=== PATIENT | female | born 1960 | race Caucasian/White ===

== ENCOUNTER 2021-03-05 20:11 | Emergency (ER) | payer MEDICARE ==
--- NOTE | 2021-03-05 20:39 | ERPHSYRPT ---
- History of Present Illness Time Seen by Provider: 03/05/21 20:39 Source: patient Exam Limitations: no limitations Physician History: This is a 60-year-old white female who has had shortness of breath all day today and had a episode of severe shortness of breath prior to arrival with associated chest pain. Chest pain came on when she was talking to a log haul operator about a home issue. Patient has a field spec, Dr. Orozco, that she has been seen recently because of the chronic, sharp left anterior chest pain she is experiencing over the last 4 weeks. Patient has not had any fever. She has not occasional mild cough. She has no abdominal pain. She has no nausea vomiting or diarrhea. Timing/Duration: today Activities at Onset: none Severity of Dyspnea-Max: mild (To moderate) Severity of Dyspnea-Current: mild Possible Cause: frequent episodes Modifying Factors: Improves With: activity Associated Symptoms: intermittent, cough, chest pain/discomfort Allergies/Adverse Reactions: donepezil Allergy (Unknown, Verified 03/05/21 21:17) latex Allergy (Unknown, Verified 03/05/21 21:17) Penicillins Allergy (Unknown, Verified 03/05/21 21:17) Travel Risk - International Travel Have you traveled outside of the country in past 3 weeks: No - Coronavirus Screening Are you exhibiting any of the following symptoms?: No Close contact with a COVID-19 positive Pt in past 14-21 Days: No - Review of Systems Constitutional: No Symptoms Eyes: No Symptoms Ears, Nose, & Throat: No Symptoms Respiratory: Cough, Dyspnea Cardiac: Chest Pain Abdominal/Gastrointestinal: No Symptoms Genitourinary Symptoms: No Symptoms Musculoskeletal: No Symptoms Skin: No Symptoms Neurological: No Symptoms Psychological: No Symptoms Endocrine: No Symptoms Hematologic/Lymphatic: No Symptoms Immunological/Allergic: No Symptoms All Other Systems: Reviewed and Negative - Past Medical History Pertinent Past Medical History: Yes - Past Surgical History Past Surgical History: Yes - Nursing Vital Signs Nursing Vital Signs: Initial Vital Signs Temperature 99.0 F 03/05/21 20:38 Pulse Rate 76 03/05/21 20:38 Respiratory Rate 18 03/05/21 20:38 Blood Pressure 146/61 03/05/21 20:38 O2 Sat by Pulse Oximetry 97 03/05/21 20:38 Pain Scale Pain Intensity 9 - Physical Exam General Appearance: no apparent distress, alert, anxiety Eye Exam: PERRL/EOMI, eyes nml inspection Ears, Nose, Throat Exam: hearing grossly normal, normal ENT inspection, normal pharynx Neck Exam: normal inspection, non-tender, supple, full range of motion Respiratory Exam: normal breath sounds, chest tenderness, lungs clear, airway intact, No respiratory distress Cardiovascular/Chest Exam: normal heart sounds, regular rate/rhythm, normal peripheral pulses Abdominal/Gastrointestinal Exam: soft, normal bowel sounds, No tenderness Rectal Exam: not done Extremity Exam: non-tender, normal range of motion, normal inspection Neurologic Exam: alert, oriented x 3, cooperative, student education specialist II-XII nml as tested, normal mood/affect, nml cerebellar function, nml station & gait, sensation nml Skin Exam: normal color, warm, dry Lymphatic Exam: No adenopathy SpO2 Interpretation: normal O2 Delivery: Room Air - Course Nursing assessment & vital signs reviewed: Yes EKG Interpreted by Me: RATE (61), Sinus Rhythm, NORMAL AXIS, NORMAL INTERVALS, NORMAL QRS, NORMAL ST-T, Other (No acute ischemic changes on today's EKG. There is no change when compared to EKG dated 12/29/2020) Ordered Tests: Active Orders 24 hr Category Date Time Status Director Sales STAT Care 03/05/21 20:40 Active EKG-ER Only STAT Care 03/05/21 20:39 Active IV Insertion STAT Care 03/05/21 20:39 Active Pulse Oximetry (ED) STAT Care 03/05/21 20:39 Active CHEST 1 VIEW (PORTABLE) Stat Exams 03/05/21 20:40 Ordered BLOOD CULTURE Stat Lab 03/05/21 21:10 Received CBC W DIFF Stat Lab 03/05/21 20:40 Completed CMP Stat Lab 03/05/21 20:40 Completed D-DIMER QUANTITATIVE Stat Lab 03/05/21 20:40 Completed INFLUENZA A+B HALEY Stat Lab 03/05/21 21:10 Completed Lactic Acid Stat Lab 03/05/21 20:39 Completed MAGNESIUM Stat Lab 03/05/21 20:40 Completed NT PRO BNP Stat Lab 03/05/21 20:40 Completed PROTIME WITH INR Stat Lab 03/05/21 20:40 Completed TROPONIN Q3H Lab 03/05/21 20:40 Completed TROPONIN Q3H Lab 03/05/21 23:45 Ordered TROPONIN Q3H Lab 03/06/21 02:45 Ordered TROPONIN Q3H Lab 03/06/21 05:45 Ordered TROPONIN Q3H Lab 03/06/21 08:45 Ordered Lab/Rad Data: Laboratory Result Diagrams 03/05/21 20:40 03/05/21 20:40 Laboratory Results 03/05/21 03/05/21 03/05/21 Range/Units 21:10 20:40 20:40 WBC (4.0-10.5) K/mm3 RBC (4.1-5.4) M/mm3 Hgb (12.0-16.0) gm/dl Hct (35-47) % MCV (78-100) fl MCH (26-32) pg MCHC (32-36) g/dl RDW (11.5-14.0) % Plt Count (150-450) K/mm3 MPV (7.5-11.0) fl Gran % (36.0-66.0) % Eos # (Auto) (0-0.5) Absolute Lymphs (auto) (1.0-4.6) Absolute Monos (auto) (0.0-1.3) Lymphocytes % (24.0-44.0) % Monocytes % (0.0-12.0) % Eosinophils % (0.00-5.0) % Basophils % (0.0-0.4) % Absolute Granulocytes (1.4-6.9) Basophils # (0-0.4) PT 12.8 H (9.4-12.5) SECONDS INR 1.08 (0.8-3.0) D-Dimer 393 (215-500) ng/mL Sodium (137-145) mmol/L Potassium (3.5-5.1) mmol/L Chloride (98-107) mmol/L Carbon Dioxide (22-30) mmol/L Anion Gap (5-15) MEQ/L BUN (7-17) mg/dL Creatinine (0.52-1.04) mg/dL Estimated GFR ML/MIN Glucose (74-106) mg/dL Lactic Acid (0.4-2.0) Calcium (8.4-10.2) mg/dL Magnesium (1.6-2.3) mg/dL Total Bilirubin (0.2-1.3) mg/dL AST (14-36) U/L ALT (0-35) U/L Alkaline Phosphatase (38-126) U/L Troponin I < 0.012 (0.000-0.034) ng/mL NT-Pro-B Natriuret Pep (0-900) pg/mL Serum Total Protein (6.3-8.2) g/dL Albumin (3.5-5.0) g/dL Influenza Type A Ag NEGATIVE (NEGATIVE) Influenza Type B Ag NEGATIVE (NEGATIVE) 03/05/21 03/05/21 03/05/21 Range/Units 20:40 20:40 20:39 WBC 9.4 (4.0-10.5) K/mm3 RBC 3.86 L (4.1-5.4) M/mm3 Hgb 11.9 L (12.0-16.0) gm/dl Hct 37.3 (35-47) % MCV 96.6 (78-100) fl MCH 30.8 (26-32) pg MCHC 31.9 L (32-36) g/dl RDW 12.7 (11.5-14.0) % Plt Count 185 (150-450) K/mm3 MPV 10.3 (7.5-11.0) fl Gran % 65.0 (36.0-66.0) % Eos # (Auto) 0.30 (0-0.5) Absolute Lymphs (auto) 1.98 (1.0-4.6) Absolute Monos (auto) 0.95 (0.0-1.3) Lymphocytes % 21.1 L (24.0-44.0) % Monocytes % 10.1 (0.0-12.0) % Eosinophils % 3.2 (0.00-5.0) % Basophils % 0.6 (0.0-0.4) % Absolute Granulocytes 6.09 (1.4-6.9) Basophils # 0.06 (0-0.4) PT (9.4-12.5) SECONDS INR (0.8-3.0) D-Dimer (215-500) ng/mL Sodium 138 (137-145) mmol/L Potassium 3.9 (3.5-5.1) mmol/L Chloride 105 (98-107) mmol/L Carbon Dioxide 27 (22-30) mmol/L Anion Gap 9.3 (5-15) MEQ/L BUN 19 H (7-17) mg/dL Creatinine 0.69 (0.52-1.04) mg/dL Estimated GFR > 60.0 ML/MIN Glucose 99 (74-106) mg/dL Lactic Acid 0.6 (0.4-2.0) Calcium 9.3 (8.4-10.2) mg/dL Magnesium 1.8 (1.6-2.3) mg/dL Total Bilirubin 0.40 (0.2-1.3) mg/dL AST 34 (14-36) U/L ALT 33 (0-35) U/L Alkaline Phosphatase 101 (38-126) U/L Troponin I (0.000-0.034) ng/mL NT-Pro-B Natriuret Pep 225 (0-900) pg/mL Serum Total Protein 6.2 L (6.3-8.2) g/dL Albumin 3.9 (3.5-5.0) g/dL Influenza Type A Ag (NEGATIVE) Influenza Type B Ag (NEGATIVE) - Progress Progress: improved Air Movement: good Progress Note: 03/05/21 22:18 Chest x-ray shows no acute cardiopulmonary process. Blood Culture(s) Obtained: No Antibiotics given: No Counseled pt/family regarding: lab results, diagnosis, need for follow-up, rad results - Departure Departure Disposition: Home Clinical Impression: SOB (shortness of breath), Chest pain Condition: Stable Critical Care Time: No Referrals: MEL TOLLIVER [Primary Care Provider] - Follow up/PCP as directed Additional Instructions: Follow-up with your field spec by phone tomorrow to obtain further management and recommendations. Continue medication as prescribed
[2021-03-05 20:51] LABS: Absolute Neutrophil Ct (ANC) 6.09 (1.4-6.9); Basophil (Absolute #) 0.06 (0-0.4); Eosinophil % 3.2 % (0.00-5.0); Hematocrit 37.3 % (35-47); Hemoglobin 11.9 gm/dl (12.0-16.0); Lymphocyte (Absolute #) 1.98 (1.0-4.6); Lymphocytes % 21.1 % (24.0-44.0); Mean Cell Volume 96.6 fl (78-100); Mean Corpuscular Hemoglobin 30.8 pg (26-32); Mean Corpuscular Hgb Concent. 31.9 g/dl (32-36); Mean Platelet Volume 10.3 fl (7.5-11.0); Monocyte (Absolute #) 0.95 (0.0-1.3); Monocytes % 10.1 % (0.0-12.0); Platelet Count 185 K/mm3 (150-450); Red Blood Count 3.86 M/mm3 (4.1-5.4); Red Cell Distribution Width 12.7 % (11.5-14.0); White Blood Count 9.4 K/mm3 (4.0-10.5)
[2021-03-05 20:59] LABS: INR 1.08 (0.8-3.0); PROTIME 12.8 SECONDS (9.4-12.5)
[2021-03-05 21:12] LABS: ALBUMIN 3.9 g/dL (3.5-5.0); ALKALINE PHOSPHATASE 101 U/L (38-126); ANION GAP 9.3 MEQ/L (5-15); BLOOD UREA NITROGEN 19 mg/dL (7-17); CHLORIDE 105 mmol/L (98-107); Calcium 9.3 mg/dL (8.4-10.2); Carbon Dioxide 27 mmol/L (22-30); Creatinine 1 0.69 mg/dL (0.52-1.04); EST GLOMERULAR FILTRATION RATE > 60.0 ML/MIN; Glucose 99 mg/dL (74-106); MAGNESIUM 1.8 mg/dL (1.6-2.3); NT PRO BNP 225 pg/mL (0-900); Potassium 3.9 mmol/L (3.5-5.1); SGOT/AST 34 U/L (14-36); SGPT/ALT 33 U/L (0-35); SODIUM 138 mmol/L (137-145); Total Protein 6.2 g/dL (6.3-8.2)
[2021-03-05 21:51] LABS: INFLUENZA A NEGATIVE (NEGATIVE); INFLUENZA B NEGATIVE (NEGATIVE)
[2021-03-05 22:25] VITALS: BP 163/86; PULSE 72; O2SAT 97
--- NOTE | 2021-03-06 09:01 | XRAY ---
Indication: Short of breath and chest pain. Comparison: None Portable chest hyperinflated and clear. Heart and mediastinal structures within normal limits. Bony thorax intact with mild osteopenia, degenerative changes, and mild levoscoliosis. Impression: Nonacute hyperinflated chest with chronic bony findings.
== END 2021-03-05 22:45 | disposition home or self-care (01) ==
LOC: ED 20:11
DX: R06.02 Shortness of breath (principal); R07.9 Chest pain, unspecified; R05.9 Cough, unspecified
CPT/HCPCS: 36000; 36415; 71045; 80053; 83605; 83735; 83880; 84484; 85025; 85379; 85610; 87040; 87400; 93005; 93041; 94760; 99284

== ENCOUNTER 2023-03-09 09:15 | Observation (INO) | payer MEDICARE ==
[2023-03-09] MEDS ORDERED: Sodium Chloride 0.9% 1000 ML 1,000 ML IV STA (09:29)
[2023-03-09] MEDS ORDERED: solu-MEDROL 125 MG, Sterile H2O 10 ml 2 ML IV ONE ×2 (09:38)
--- NOTE | 2023-03-09 09:40 | ERPHSYRPT ---
- History of Present Illness Time Seen by Provider: 03/09/23 09:34 Physician History: Patient 62-year-old female presents to our ED as a referral from her nurse practitioner and in [facility] for IV fluids to treat chronic diarrhea. Patient voices she has a history of COPD. Patient has had an ongoing cough and shortness of breath that has been progressive. Patient states that she was diagnosed with bronchitis but her symptoms are worsening. No associated chest pain. No nausea vomiting or diaphoresis. No fever. Symptoms are moderate in intensity. No specific worsening or improving factors. Patient voices no other complaints or concerns at this time. Portions of this note were created with voice recognition technology. There may be grammatical, spelling, punctuation or sound alike errors Timing/Duration: today Severity: moderate Modifying Factors: Improves With: nothing Associated Symptoms: denies symptoms Allergies/Adverse Reactions: diazepam Allergy (Severe, Verified 03/09/23 09:57) Difficulty Breathing total body hives donepezil Allergy (Unknown, Verified 03/09/23 09:57) latex Allergy (Unknown, Verified 03/09/23 09:57) Penicillins Allergy (Unknown, Verified 03/09/23 09:57) Latex, Natural Rubber Allergy (Verified 03/09/23 09:57) Difficulty Breathing total body hives valbenazine [From Ingrezza] Allergy (Verified 03/09/23 09:57) Difficulty Breathing total body hives Home Medications: Amlodipine Besylate 5 mg [Norvasc 5 mg] 5 mg PO DAILY 12/15/21 [History] Ipratropium Trent 0.5 mg [Atrovent 0.5MG NEBULE] 1 neb PO QID 12/15/21 [History] Nitroglycerin 0.4 mg Tablet [Nitrostat 0.4 MG Tablet] 0.4 mg SL UD 12/15/21 [History] Omeprazole 20 mg PO DAILY 12/15/21 [History] Albuterol 8 gm Mdi Hfa [Ventolin Hfa MDI] 2 puff PO Q4H PRN PRN 03/09/23 [History] Cetirizine HCl 1 tab PO DAILY 03/09/23 [History] Levothyroxine Sodium 25 Mcg [Synthroid 25 Mcg] 1 tab PO DAILY 03/09/23 [History] Mirtazapine 30 mg [Remeron 30 mg] 1 tab PO HS 03/09/23 [History] Mometasone Furoate [Nasonex 24Hr Allergy] 1 spray INTRANASAL DAILY 03/09/23 [History] OXcarbazepine [Trileptal] 1 tab PO BID 03/09/23 [History] Pravastatin Sodium 1 tab PO HS 03/09/23 [History] Vortioxetine Hydrobromide [Trintellix] 1 tab PO DAILY 03/09/23 [History] Ziprasidone 20 mg [Geodon 20 MG Capsule] 1 cap PO DAILY 03/09/23 [History] ziprasidone HCL [Ziprasidone HCl] 1 cap PO HS 03/09/23 [History] Hx Tetanus, Diphtheria Vaccination/Date Given: (unsure) Hx Influenza Vaccination/Date Given: No Hx Pneumococcal Vaccination/Date Given: No Travel Risk - Vaccine Status Have you recieved a Covid-19 vaccination: Yes Splitter Tender: Branded Online - Vaccination Dates Date of 2cond Vaccination (if applicable): 05/09/20 - Review of Systems Constitutional: No Symptoms, No Fever, No Chills Eyes: No Symptoms Ears, Nose, & Throat: No Symptoms Respiratory: No Symptoms, No Cough, No Dyspnea Cardiac: No Symptoms, No Chest Pain, No Edema, No Syncope Abdominal/Gastrointestinal: No Symptoms, No Abdominal Pain, No Nausea, No Vomiting, No Diarrhea Genitourinary Symptoms: No Symptoms, No Dysuria Musculoskeletal: No Symptoms, No Back Pain, No Neck Pain Skin: No Symptoms, No Rash Neurological: No Symptoms, No Dizziness, No Focal Weakness, No Sensory Changes Psychological: No Symptoms Endocrine: No Symptoms Hematologic/Lymphatic: No Symptoms Immunological/Allergic: No Symptoms All Other Systems: Reviewed and Negative - Past Medical History Pertinent Past Medical History: Yes Neurological History: Seizures Cardiac History: High Cholesterol, Hypertension Respiratory History: COPD, Asthma Endocrine Medical History: Hypothyroidism Musculoskeletal History: Fractures, Arthritis, Rheumatoid Arthritis, Osteoarthritis, Osteoporosis, Degenerative Disk Disease GI Medical History: GERD Psycho-Social History: Bipolar, Anxiety Other Medical History: tardive dyskinesia, seeing dr piper for chest pain and heart murmer,. exocrine pancreatic insuff. pt poor historian. - Past Surgical History Past Surgical History: Yes - Social History Smoking Status: Current every day smoker How long have you smoked: yrs Exposure to second hand smoke: Yes Drug Use: none Patient Lives Alone: No - Nursing Vital Signs Nursing Vital Signs: Initial Vital Signs Temperature 98.3 F 03/09/23 09:16 Pulse Rate 75 03/09/23 09:16 Respiratory Rate 18 03/09/23 09:16 Blood Pressure 119/71 03/09/23 09:16 O2 Sat by Pulse Oximetry 96 03/09/23 09:16 Pain Scale Pain Intensity 2 - Physical Exam General Appearance: no apparent distress, alert Eye Exam: PERRL/EOMI, eyes nml inspection Ears, Nose, Throat Exam: normal ENT inspection, TMs normal, pharynx normal, moist mucous membranes Neck Exam: normal inspection, non-tender, supple, full range of motion Respiratory Exam: normal breath sounds, diminished breath sounds, rhonchi, wheezing, No respiratory distress Cardiovascular Exam: regular rate/rhythm, normal heart sounds, normal peripheral pulses Gastrointestinal/Abdomen Exam: soft, normal bowel sounds, No tenderness, No mass Back Exam: normal inspection, normal range of motion, No CVA tenderness, No vertebral tenderness Extremity Exam: normal inspection, normal range of motion, pelvis stable Neurologic Exam: alert, oriented x 3, cooperative, normal mood/affect, sensation nml, No motor deficits Skin Exam: normal color, warm, dry, No rash Lymphatic Exam: No adenopathy SpO2 Interpretation: normal SpO2: 96 O2 Delivery: Room Air - Course Nursing assessment & vital signs reviewed: Yes - CT Exams Chest CT Interpretation: Tele-radiologist Report (Mild hiatal hernia fatty liver spine arthritis negative for PE) Ordered Tests: Active Orders 24 hr Category Date Time Status Dinkey Locomotive Engineer STAT Care 03/09/23 09:30 Active EKG-ER Only STAT Care 03/09/23 09:35 Active IV Insertion STAT Care 03/09/23 09:29 Active Pulse Oximetry (ED) STAT Care 03/09/23 09:35 Active CHEST WITH CONTRAST [CT] Stat Exams 03/09/23 10:13 Completed BLOOD CULTURE Stat Lab 03/09/23 09:35 Ordered CBC W DIFF Stat Lab 03/09/23 09:29 Completed CMP Stat Lab 03/09/23 09:43 Completed D-DIMER QUANTITATIVE Stat Lab 03/09/23 09:43 Completed Lactic Acid Stat Lab 03/09/23 09:35 Completed TROPONIN Q4H Lab 03/09/23 09:43 Completed TROPONIN Q4H Lab 03/09/23 13:45 Ordered TROPONIN Q4H Lab 03/09/23 17:45 Ordered Transfer Order Routine Transfer 03/09/23 Ordered Medication Summary Generic Name Dose Route Start Last Admin Trade Name Katherin PRN Reason Stop Dose Admin Doxycycline Hyclate 100 mg/ 100 mls @ 100 mls/hr 03/09/23 10:00 03/09/23 10:26 Dextrose IV 04/08/23 09:59 100 mls/hr Q12HT NAREN Administration Discontinued Medications Generic Name Dose Route Start Last Admin Trade Name Ismaelq PRN Reason Stop Dose Admin Methylprednisolone Sodium 0 mg 03/09/23 09:38 03/09/23 10:20 Succinate 125 mg/ Sterile IV 03/09/23 09:39 125 mg Water 2 ml STAT ONE Administration Doxycycline Hyclate Confirm 03/09/23 10:05 Doxycycline Hyclate 100 Mg/Vial Injection Administered 03/09/23 10:06 Dose 100 mg IV .STK-MED ONE Sodium Chloride 1,000 mls @ 999 mls/hr 03/09/23 09:29 03/09/23 11:21 Sodium Chloride 0.9% 1000 Ml IV 03/09/23 10:29 Infused .Q1H1M STA Infusion Sodium Chloride Confirm 03/09/23 10:05 Sodium Chloride 0.9% 1000 Ml Administered 03/09/23 10:06 Dose 1,000 mls @ ud .ROUTE .STK-MED ONE Dextrose Confirm 03/09/23 10:05 D5w 100ml Mini Bag 100 Ml Administered 03/09/23 10:06 Dose 100 mls @ ud IV .STK-MED ONE Sodium Chloride Confirm 03/09/23 10:08 Sodium Chloride 100ml Mini-Bag Plus Administered 03/09/23 10:09 Dose 100 mls @ ud IV .STK-MED ONE Methylprednisolone Sodium Succinate Confirm 03/09/23 10:05 Methylprednis Sod Succ 125 Mg/2 Ml Vial Administered 03/09/23 10:06 Dose 125 mg .ROUTE .STK-MED ONE Sterile Water Confirm 03/09/23 10:05 Water For Injection,Sterile 10 Ml Vial Administered 03/09/23 10:06 Dose 10 ml IJ .STK-MED ONE Lab/Rad Data: Laboratory Result Diagrams 03/09/23 09:29 03/09/23 09:43 Laboratory Results 03/09/23 03/09/23 03/09/23 Range/Units 09:43 09:43 09:43 WBC (4.0-10.5) x10^3/uL RBC (4.1-5.4) x10^6/uL Hgb (12.0-16.0) g/dL Hct (35-47) % MCV (78-100) fL MCH (26-32) pg MCHC (32-36) g/dL RDW (11.5-14.0) % Plt Count (150-450) x10^3/uL MPV (7.5-11.0) fL Gran % (36.0-66.0) % Immature Gran % (Auto) (0.00-0.4) % Nucleat RBC Rel Count (0.00-0.1) % Eos # (Auto) (0-0.5) x10^3/uL Immature Gran # (Auto) (0.00-0.03) x10^3u/L Absolute Lymphs (auto) (1.0-4.6) x10^3/uL Absolute Monos (auto) (0.0-1.3) x10^3/uL Absolute Nucleated RBC (0.00-0.01) x10^3u/L Lymphocytes % (24.0-44.0) % Monocytes % (0.0-12.0) % Eosinophils % (0.00-5.0) % Basophils % (0.0-0.4) % Absolute Granulocytes (1.4-6.9) x10^3/uL Basophils # (0-0.4) x10^3/uL D-Dimer 0.71 H* (0.0-0.50) mg/L Sodium (137-145) mmol/L Potassium (3.5-5.1) mmol/L Chloride (98-107) mmol/L Carbon Dioxide (22-30) mmol/L Anion Gap (5-15) MEQ/L BUN (7-17) mg/dL Creatinine (0.52-1.04) mg/dL Estimated GFR ML/MIN Glucose (74-106) mg/dL Lactic Acid (0.4-2.0) Calcium (8.4-10.2) mg/dL Total Bilirubin (0.2-1.3) mg/dL AST (14-36) U/L ALT (0-35) U/L Alkaline Phosphatase (38-126) U/L Troponin I 0.013 (0.000-0.034) ng/mL Serum Total Protein (6.3-8.2) g/dL Albumin (3.5-5.0) g/dL Influenza Type A Ag POSITIVE (NEGATIVE) Influenza Type B Ag NEGATIVE (NEGATIVE) RSV (PCR) NEGATIVE (NEGATIVE) SARS-CoV-2 (PCR) NEGATIVE (NEGATIVE) 03/09/23 03/09/23 03/09/23 Range/Units 09:43 09:35 09:29 WBC 6.0 (4.0-10.5) x10^3/uL RBC 3.98 L (4.1-5.4) x10^6/uL Hgb 11.8 L (12.0-16.0) g/dL Hct 37.8 (35-47) % MCV 95.0 (78-100) fL MCH 29.6 (26-32) pg MCHC 31.2 L (32-36) g/dL RDW 12.9 (11.5-14.0) % Plt Count 182 (150-450) x10^3/uL MPV 10.0 (7.5-11.0) fL Gran % 65.1 (36.0-66.0) % Immature Gran % (Auto) 0.3 (0.00-0.4) % Nucleat RBC Rel Count 0.0 (0.00-0.1) % Eos # (Auto) 0.03 (0-0.5) x10^3/uL Immature Gran # (Auto) 0.02 (0.00-0.03) x10^3u/L Absolute Lymphs (auto) 1.13 (1.0-4.6) x10^3/uL Absolute Monos (auto) 0.88 (0.0-1.3) x10^3/uL Absolute Nucleated RBC 0.00 (0.00-0.01) x10^3u/L Lymphocytes % 18.7 L (24.0-44.0) % Monocytes % 14.6 H (0.0-12.0) % Eosinophils % 0.5 (0.00-5.0) % Basophils % 0.8 (0.0-0.4) % Absolute Granulocytes 3.92 (1.4-6.9) x10^3/uL Basophils # 0.05 (0-0.4) x10^3/uL D-Dimer (0.0-0.50) mg/L Sodium 131 L (137-145) mmol/L Potassium 4.0 (3.5-5.1) mmol/L Chloride 99 (98-107) mmol/L Carbon Dioxide 25 (22-30) mmol/L Anion Gap 10.5 (5-15) MEQ/L BUN 15 (7-17) mg/dL Creatinine 0.94 (0.52-1.04) mg/dL Estimated GFR 67.8 ML/MIN Glucose 94 (74-106) mg/dL Lactic Acid 1.2 (0.4-2.0) Calcium 8.9 (8.4-10.2) mg/dL Total Bilirubin 0.30 (0.2-1.3) mg/dL AST 45 H (14-36) U/L ALT 21 (0-35) U/L Alkaline Phosphatase 128 H (38-126) U/L Troponin I (0.000-0.034) ng/mL Serum Total Protein 7.1 (6.3-8.2) g/dL Albumin 4.1 (3.5-5.0) g/dL Influenza Type A Ag (NEGATIVE) Influenza Type B Ag (NEGATIVE) RSV (PCR) (NEGATIVE) SARS-CoV-2 (PCR) (NEGATIVE) - Progress Progress: improved Progress Note: Patient is a 62-year-old female presents to our emergency department for evaluation of diarrhea dehydration and progressive shortness of breath. Physical exam reveals diminished coarse breath sounds with wheezing. EKG normal sinus rhythm. CTA chest negative for PE. Blood cultures obtained. CBC nonremarkable. CMP shows sodium of 131. Patient is influenza A positive. Lactic acid within normal limits. Ischial troponin negative. Patient received doxycycline antibiotic. IV fluids infused. Solu-Medrol administered as well. 03/09/23 12:[address] Frederick at 1238. Dr. Frederick accepts admission to [facility]. Patient agrees to admission to [facility] for further evaluation and treatment. Portions of this note were created with voice recognition technology. There may be grammatical, spelling, punctuation or sound alike errors Complexity of problem addressed is moderate acute complicated No critical care time Complex of data reviewed and analyzed is extensive. Test ordered test reviewed. Results analyzed and correlated clinically with history and physical exam. Management discussed with hospitalist who excepts admission to observation. Risk of complication and or risk of morbidity/mortality of patient management is high. Patient received nebulizer treatment. Patient also requires hospitalization for further evaluation and treatment. Vital stable. Time spent to admit patient is approximately 20 minutes. Plan of care established for shared decision making. Patient voices no other complaints or concerns at this time. Portions of this note were created with voice recognition technology. There may be grammatical, spelling, punctuation or sound alike errors 03/09/23 12:55 Counseled pt/family regarding: lab results, diagnosis, rad results - Departure Departure Disposition: Observation Clinical Impression: SOB (shortness of breath), COPD exacerbation, Diarrhea, Dehydration, Influenza A, Hyponatremia, Fatty liver, Small hiatal hernia, Arthritis of spine Condition: Stable Critical Care Time: No Referrals: DOCTOR,NO FAMILY [Primary Care Provider] - Follow up/PCP as directed Instructions: Chronic Obstructive Pulmonary Disease
[2023-03-09 09:52] LABS: Absolute Neutrophil Ct (ANC) 3.92 x10^3/uL (1.4-6.9); BASOPHIL % 0.8 % (0.0-0.4); Basophil (Absolute #) 0.05 x10^3/uL (0-0.4); Eosinophil % 0.5 % (0.00-5.0); Eosinophil (Absolute #) 0.03 x10^3/uL (0-0.5); Hematocrit 37.8 % (35-47); Hemoglobin 11.8 g/dL (12.0-16.0); IMMATURE GRAN # 0.02 x10^3u/L (0.00-0.03); IMMATURE GRAN % 0.3 % (0.00-0.4); Lymphocyte (Absolute #) 1.13 x10^3/uL (1.0-4.6); Lymphocytes % 18.7 % (24.0-44.0); Mean Corpuscular Hemoglobin 29.6 pg (26-32); Mean Corpuscular Hgb Concent. 31.2 g/dL (32-36); Monocyte (Absolute #) 0.88 x10^3/uL (0.0-1.3); Monocytes % 14.6 % (0.0-12.0); Neutrophil % 65.1 % (36.0-66.0); Platelet Count 182 x10^3/uL (150-450); Red Blood Count 3.98 x10^6/uL (4.1-5.4); Red Cell Distribution Width 12.9 % (11.5-14.0)
[2023-03-09] MEDS ORDERED: VIBRAMYCIN 100 MG*** 100 MG in Dextrose 5%/Water IV Soln. 100ML PLUS BAG 100 ML IV SCH (10:00)
[2023-03-09 10:05] LABS: ALBUMIN 4.1 g/dL (3.5-5.0); ANION GAP 10.5 MEQ/L (5-15); BILIRUBIN,TOTAL 0.3 mg/dL (0.2-1.3); Calcium 8.9 mg/dL (8.4-10.2); Creatinine 1 0.94 mg/dL (0.52-1.04); EST GLOMERULAR FILTRATION RATE 67.8 ML/MIN; Total Protein 7.1 g/dL (6.3-8.2)
[2023-03-09] MEDS ORDERED: D5w 100ML Mini Bag 100 ML 0 ML IV ONE (10:05)
[2023-03-09] MEDS ORDERED: solu-MEDROL ONE (10:05)
[2023-03-09] MEDS ORDERED: Sterile H2O 10 ml IJ ONE (10:05)
[2023-03-09] MEDS ORDERED: VIBRAMYCIN 100 MG IV ONE (10:05)
[2023-03-09] MEDS ORDERED: Sodium Chloride 0.9% 1000 ML 1,000 ML ONE (10:05)
[2023-03-09] MEDS ORDERED: Sodium Chloride 100ML MINI-BAG PLUS 0 ML IV ONE (10:08)
[2023-03-09 10:25] LABS: INFLUENZA B NEGATIVE (NEGATIVE); RESPIRATORY SYNCTIAL VIRUS NEGATIVE (NEGATIVE); SARS-CoV-2 Xpert Express NEGATIVE (NEGATIVE)
[2023-03-09 10:29] LABS: INFLUENZA A POSITIVE (NEGATIVE)
--- NOTE | 2023-03-09 11:49 | XRAY ---
Indication: Short of breath. Elevated d-dimer. COPD. Multiple contiguous axial images obtained through the chest using 80 cc Isovue 370 contrast and PE protocol. Comparison: None Good opacification of the pulmonary arteries to includes the lobar and segmental branches. No pulmonary embolus. Heart not enlarged. Aorta is normal in course and caliber. Tiny mediastinal calcified node. No pathologic mediastinal/hilar lymphadenopathy. Small hiatal hernia. Lungs hyperinflated and clear. Bony thorax intact with mild degenerative changes throughout the spine, minimal remote appearing anterior wedging deformities T8-T10 segments, and minimal dextroscoliosis. Limited upper abdomen demonstrates fatty liver. Impression: 1. Negative pulmonary embolus. No acute cardiopulmonary abnormalities. 2. Chronic findings including small hiatal hernia, fatty liver, chronic bony findings, and old granulomatous disease.
[2023-03-09] MEDS ORDERED: DUONEB 0.5-3 MG/3 ml Neb IH ONE ×2 (12:56→12:59)
--- NOTE | 2023-03-09 13:54 | PCM.HP ---
History of Present Illness - Chief Complaint Chief Complaint: COPD exacerbation, diarrhea Date: 03/09/23 History of Present Illness: is a 62 year old female with PMHX of seizures, hyperlipidemia, HTN, asthma, COPD, hypothyroidism, arthritis, RA, DJD, GERD, anxiety, bipolar, and daily smoker. She presented to our ED as a referral from her nurse practitioner Shayy Levy, in [place] for IV fluids to treat chronic diarrhea. Patient has had an ongoing cough and shortness of breath that has been progressive. Patient states that she was diagnosed with bronchitis but her symptoms are worsening. No associated chest pain. No nausea vomiting or diaphoresis. No fever. Symptoms are moderate in intensity. No specific worsening or improving factors. D-dimer elevated in ER and CT with PE protocol negative for PE. She reports having flu sxs for over 1 week now. She was + for flu A in ER. She was given IV antibiotics, steriods, duoneb, and fluid bolus in the ER for COPD exacerbation and diarrhea. She is 92 % RA. She is feeling better. Will continue with ER plan of care and most likely d/c tomorrow. - Review of Systems Constitutional: No Fever, No Chills Eyes: No Symptoms Ears, Nose, & Throat: No Symptoms Respiratory: Cough, Short Of Breath, Wheezing Cardiac: No Chest Pain, No Edema, No Syncope Abdominal/Gastrointestinal: Diarrhea, No Abdominal Pain, No Nausea, No Vomiting Genitourinary Symptoms: No Dysuria Musculoskeletal: No Back Pain, No Neck Pain Skin: No Rash Neurological: No Dizziness, No Focal Weakness, No Sensory Changes Psychological: No Symptoms Endocrine: No Symptoms Hematologic/Lymphatic: No Symptoms Immunological/Allergic: No Symptoms Medications & Allergies Home Medications: Home Medication List Amlodipine Besylate 5 mg [Norvasc 5 mg] 5 mg PO DAILY 12/15/21 [History Confirmed 03/09/23] Ipratropium [place] 0.5 mg [Atrovent 0.5MG NEBULE] 1 neb PO QID 12/15/21 [History Confirmed 03/09/23] Nitroglycerin 0.4 mg Tablet [Nitrostat 0.4 MG Tablet] 0.4 mg SL UD 12/15/21 [History Confirmed 03/09/23] Omeprazole 20 mg PO DAILY 12/15/21 [History Confirmed 03/09/23] Albuterol 8 gm Mdi Hfa [Ventolin Hfa MDI] 2 puff PO Q4H PRN PRN 03/09/23 [History Confirmed 03/09/23] Cetirizine HCl 1 tab PO DAILY 03/09/23 [History Confirmed 03/09/23] Levothyroxine Sodium 25 Mcg [Synthroid 25 Mcg] 1 tab PO DAILY 03/09/23 [History Confirmed 03/09/23] Mirtazapine 30 mg [Remeron 30 mg] 1 tab PO HS 03/09/23 [History Confirmed 03/09/23] Mometasone Furoate [Nasonex 24Hr Allergy] 1 spray INTRANASAL DAILY 03/09/23 [History Confirmed 03/09/23] OXcarbazepine [Trileptal] 1 tab PO BID 03/09/23 [History Confirmed 03/09/23] Pravastatin Sodium 1 tab PO HS 03/09/23 [History Confirmed 03/09/23] Vortioxetine Hydrobromide [Trintellix] 1 tab PO DAILY 03/09/23 [History Confirmed 03/09/23] Ziprasidone 20 mg [Geodon 20 MG Capsule] 1 cap PO DAILY 03/09/23 [History Confirmed 03/09/23] ziprasidone HCL [Ziprasidone HCl] 1 cap PO HS 03/09/23 [History Confirmed 03/09/23] Allergies/Adverse Reactions: Allergies Allergy/AdvReac Type Severity Reaction Status Date / Time diazepam Allergy Severe Difficulty Verified 03/09/23 09:57 Breathing donepezil Allergy Unknown Verified 03/09/23 09:57 latex Allergy Unknown Verified 03/09/23 09:57 Penicillins Allergy Unknown Verified 03/09/23 09:57 Latex, Natural Rubber Allergy Difficulty Verified 03/09/23 09:57 Breathing valbenazine [From Ingrezza] Allergy Difficulty Verified 03/09/23 09:57 Breathing - Past Medical History Past Medical History: Yes Neurological History: Seizures Cardiac History: High Cholesterol, Hypertension Respiratory History: COPD, Asthma Endocrine Medical History: Hypothyroidism Musculoskelatal History: Fractures, Arthritis, Rheumatoid Arthritis, Osteoarthritis, Osteoporosis, Degenerative Disk Disease GI Medical History: GERD Pyscho-Social History: Bipolar, Anxiety Comment: tardive dyskinesia, seeing dr piper for chest pain and heart murmer,. exocrine pancreatic insuff. pt poor historian. - Past Surgical History Past Surgical History: Yes GI Surgical History: Appendectomy, Cholecystectomy Musculskeletal Surgical Hx: Other Female Surgical History: Hysterectomy, Tubal Ligation Other Surgical History: right shoulder reconstruction - Social History Smoking Status: Current every day smoker How long have you smoked: yrs Exposure to second hand smoke: Yes Alcohol: None Drug Use: none - Physical Exam Vital Signs: Vital Signs - 24 hr Temp Pulse Resp BP BP Pulse Ox 03/09/23 13:15 63 21 92 L 03/09/23 13:01 65 22 112/66 92 L 03/09/23 13:00 65 22 92 L 03/09/23 12:59 96 03/09/23 12:50 68 22 91 L 03/09/23 12:40 90 25 H 96 03/09/23 12:32 66 21 92 L 03/09/23 12:00 66 21 155/86 93 L 03/09/23 11:31 65 21 153/77 96 03/09/23 11:00 128/86 03/09/23 10:30 65 19 136/75 98 03/09/23 10:00 75 25 H 130/79 96 03/09/23 09:35 99 03/09/23 09:30 75 20 119/71 97 03/09/23 09:16 98.3 F 75 18 119/71 96 General Appearance: no apparent distress, alert Neurologic Exam: alert, oriented x 3, cooperative, normal mood/affect, nml cerebellar function, nml station & gait, sensation nml, No motor deficits Eye Exam: PERRL/EOMI, eyes nml inspection Ears, Nose, Throat Exam: normal ENT inspection, TMs normal, pharynx normal, moist mucous membranes Neck Exam: normal inspection, non-tender, supple, full range of motion Respiratory Exam: wheezing, No respiratory distress Cardiovascular Exam: regular rate/rhythm, normal heart sounds, normal peripheral pulses Gastrointestinal/Abdomen Exam: soft, normal bowel sounds, No tenderness, No mass Back Exam: normal inspection, normal range of motion, No CVA tenderness, No vertebral tenderness Extremity Exam: normal inspection, normal range of motion, pelvis stable Skin Exam: normal color, warm, dry, No rash Lymphatic Exam: No adenopathy Results - Labs Lab/Micro Results: Lab Results-Last 24 Hours 03/09/23 03/09/23 03/09/23 Range/Units 09:29 09:35 09:43 WBC 6.0 (4.0-10.5) x10^3/uL RBC 3.98 L (4.1-5.4) x10^6/uL Hgb 11.8 L (12.0-16.0) g/dL Hct 37.8 (35-47) % MCV 95.0 (78-100) fL MCH 29.6 (26-32) pg MCHC 31.2 L (32-36) g/dL RDW 12.9 (11.5-14.0) % Plt Count 182 (150-450) x10^3/uL MPV 10.0 (7.5-11.0) fL Gran % 65.1 (36.0-66.0) % Immature Gran % (Auto) 0.3 (0.00-0.4) % Nucleat RBC Rel Count 0.0 (0.00-0.1) % Eos # (Auto) 0.03 (0-0.5) x10^3/uL Immature Gran # (Auto) 0.02 (0.00-0.03) x10^3u/L Absolute Lymphs (auto) 1.13 (1.0-4.6) x10^3/uL Absolute Monos (auto) 0.88 (0.0-1.3) x10^3/uL Absolute Nucleated RBC 0.00 (0.00-0.01) x10^3u/L Lymphocytes % 18.7 L (24.0-44.0) % Monocytes % 14.6 H (0.0-12.0) % Eosinophils % 0.5 (0.00-5.0) % Basophils % 0.8 (0.0-0.4) % Absolute Granulocytes 3.92 (1.4-6.9) x10^3/uL Basophils # 0.05 (0-0.4) x10^3/uL D-Dimer (0.0-0.50) mg/L Sodium 131 L (137-145) mmol/L Potassium 4.0 (3.5-5.1) mmol/L Chloride 99 (98-107) mmol/L Carbon Dioxide 25 (22-30) mmol/L Anion Gap 10.5 (5-15) MEQ/L BUN 15 (7-17) mg/dL Creatinine 0.94 (0.52-1.04) mg/dL Estimated GFR 67.8 ML/MIN Glucose 94 (74-106) mg/dL Lactic Acid 1.2 (0.4-2.0) Calcium 8.9 (8.4-10.2) mg/dL Total Bilirubin 0.30 (0.2-1.3) mg/dL AST 45 H (14-36) U/L ALT 21 (0-35) U/L Alkaline Phosphatase 128 H (38-126) U/L Troponin I (0.000-0.034) ng/mL Serum Total Protein 7.1 (6.3-8.2) g/dL Albumin 4.1 (3.5-5.0) g/dL Influenza Type A Ag (NEGATIVE) Influenza Type B Ag (NEGATIVE) RSV (PCR) (NEGATIVE) SARS-CoV-2 (PCR) (NEGATIVE) 03/09/23 03/09/23 03/09/23 Range/Units 09:43 09:43 09:43 WBC (4.0-10.5) x10^3/uL RBC (4.1-5.4) x10^6/uL Hgb (12.0-16.0) g/dL Hct (35-47) % MCV (78-100) fL MCH (26-32) pg MCHC (32-36) g/dL RDW (11.5-14.0) % Plt Count (150-450) x10^3/uL MPV (7.5-11.0) fL Gran % (36.0-66.0) % Immature Gran % (Auto) (0.00-0.4) % Nucleat RBC Rel Count (0.00-0.1) % Eos # (Auto) (0-0.5) x10^3/uL Immature Gran # (Auto) (0.00-0.03) x10^3u/L Absolute Lymphs (auto) (1.0-4.6) x10^3/uL Absolute Monos (auto) (0.0-1.3) x10^3/uL Absolute Nucleated RBC (0.00-0.01) x10^3u/L Lymphocytes % (24.0-44.0) % Monocytes % (0.0-12.0) % Eosinophils % (0.00-5.0) % Basophils % (0.0-0.4) % Absolute Granulocytes (1.4-6.9) x10^3/uL Basophils # (0-0.4) x10^3/uL D-Dimer 0.71 H* (0.0-0.50) mg/L Sodium (137-145) mmol/L Potassium (3.5-5.1) mmol/L Chloride (98-107) mmol/L Carbon Dioxide (22-30) mmol/L Anion Gap (5-15) MEQ/L BUN (7-17) mg/dL Creatinine (0.52-1.04) mg/dL Estimated GFR ML/MIN Glucose (74-106) mg/dL Lactic Acid (0.4-2.0) Calcium (8.4-10.2) mg/dL Total Bilirubin (0.2-1.3) mg/dL AST (14-36) U/L ALT (0-35) U/L Alkaline Phosphatase (38-126) U/L Troponin I 0.013 (0.000-0.034) ng/mL Serum Total Protein (6.3-8.2) g/dL Albumin (3.5-5.0) g/dL Influenza Type A Ag POSITIVE (NEGATIVE) Influenza Type B Ag NEGATIVE (NEGATIVE) RSV (PCR) NEGATIVE (NEGATIVE) SARS-CoV-2 (PCR) NEGATIVE (NEGATIVE) Microbiology 03/09/23 09:35 Blood Culture Gram Stain - Final Blood Not Reportable 03/09/23 09:35 Blood Culture Gram Stain - Final Blood Not Reportable - Radiology Impressions Radiology Exams & Impressions: Radiology Procedures Category Date Time Status CHEST WITH CONTRAST [CT] Stat Exams 03/09/23 10:13 Completed - Other Procedures and Tests Respiratory Therapy 03/09/23 13:14 Respiratory Therapy Assessment DAILY Assessment/Plan (1) COPD exacerbation Current Visit: Yes Status: Acute Assessment & Plan: - Steriods, duoneb, and doxycycline gave in ER- continue - benzonatate for cough - Tele - RA 92%- Keep O2 > 92% - RT eval and treat - Chest CT 03/09/23 Impression: 1. Negative pulmonary embolus. No acute cardiopulmonary abnormalities. 2. Chronic findings including small hiatal hernia, fatty liver, chronic bony findings, and old granulomatous disease. Code(s): J44.1 - CHRONIC OBSTRUCTIVE PULMONARY DISEASE W (ACUTE) EXACERBATION (2) Dehydration Current Visit: Yes Status: Acute Assessment & Plan: - IVF bolus gave in ER - IVF - 2:2 Flu A Code(s): E86.0 - DEHYDRATION (3) Diarrhea Current Visit: Yes Status: Acute Assessment & Plan: - 2:2 Flu A - IVF - BRAT diet - C-dif test-if negative can start Imodium Code(s): R19.7 - DIARRHEA, UNSPECIFIED (4) Fatty liver Current Visit: Yes Status: Acute Assessment & Plan: - as seen on CT - F/U OP Code(s): K76.0 - FATTY (CHANGE OF) LIVER, NOT ELSEWHERE CLASSIFIED (5) Hyponatremia Current Visit: Yes Status: Acute Assessment & Plan: - mild 131- trend - IVF Code(s): E87.1 - HYPO-OSMOLALITY AND HYPONATREMIA (6) Influenza A Current Visit: Yes Status: Acute Assessment & Plan: - Dx over 1 week ago - Unable to give Tamiflu at this time since > 1 week. - Supportive care Code(s): J10.1 - FLU DUE TO OTH IDENT INFLUENZA VIRUS W OTH RESP MANIFEST (7) GERD (gastroesophageal reflux disease) Current Visit: Yes Status: Chronic Assessment & Plan: - Continue omeprazole Code(s): K21.9 - GASTRO-ESOPHAGEAL REFLUX DISEASE WITHOUT ESOPHAGITIS (8) Elevated d-dimer Current Visit: Yes Status: Acute Assessment & Plan: - D-Dimer 0.71 - CT chest 03/09 Impression: 1. Negative pulmonary embolus. No acute cardiopulmonary abnormalities. 2. Chronic findings including small hiatal hernia, fatty liver, chronic bony findings, and old granulomatous disease. Code(s): R79.89 - OTHER SPECIFIED ABNORMAL FINDINGS OF BLOOD CHEMISTRY (9) Smoker Current Visit: Yes Status: Chronic Assessment & Plan: - advised cessation - Nicotine patch VTE: Lovenox PPI: omeprazole Next of Kin:Mara Deann [phone] D/C plan: tomorrow Code status: Full PCP GISELE Lebron Code(s): F17.200 - NICOTINE DEPENDENCE, UNSPECIFIED, UNCOMPLICATED
[2023-03-09] MEDS: ENOXAPARIN SODIUM SQ SCH (16:31)
[2023-03-09] MEDS: Nicoderm CQ 21 MG TOP SCH (16:31)
[2023-03-09] MEDS: Sodium Chloride 0.9% 1000 ML 1,000 ML IV SCH (16:31)
[2023-03-09] MEDS ORDERED: VENTOLIN COMMON CANISTER IH PRN (16:47)
[2023-03-09] MEDS ORDERED: MEDICATION INTERVENTION MC SCH (17:00)
[2023-03-09] MEDS: DUONEB 0.5-3 MG/3 ml Neb IH SCH (18:56)
[2023-03-09] MEDS: Tessalon Perles 100 MG PO PRN (19:38)
[2023-03-09] MEDS: Trileptal 300 MG Tablet PO SCH (21:21)
[2023-03-09] MEDS: DELTASONE 20 MG PO SCH (21:21)
[2023-03-09] MEDS: Vibramycin 100 MG PO SCH (21:21)
[2023-03-09] MEDS ORDERED: ZOCOR 20MG PO SCH (22:00)
[2023-03-09] MEDS ORDERED: Geodon 20 MG Capsule PO SCH (22:00)
[2023-03-09] MEDS ORDERED: REMERON 30 MG PO SCH (22:00)
[2023-03-10] MEDS: DUONEB 0.5-3 MG/3 ml Neb IH SCH ×3 (00:56→11:58)
[2023-03-10] MEDS: Sodium Chloride 0.9% 1000 ML 1,000 ML IV SCH (05:21)
[2023-03-10 05:27] LABS: Hematocrit 39.4 % (35-47); Hemoglobin 12.3 g/dL (12.0-16.0); Mean Cell Volume 93.6 fL (78-100); Mean Corpuscular Hemoglobin 29.2 pg (26-32); Mean Corpuscular Hgb Concent. 31.2 g/dL (32-36); Mean Platelet Volume 10.7 fL (7.5-11.0); Platelet Count 208 x10^3/uL (150-450); Red Blood Count 4.21 x10^6/uL (4.1-5.4); White Blood Count 4.8 x10^3/uL (4.0-10.5)
[2023-03-10 05:53] LABS: ALBUMIN 4.1 g/dL (3.5-5.0); ANION GAP 11.1 MEQ/L (5-15); BILIRUBIN,TOTAL 0.3 mg/dL (0.2-1.3); Calcium 9.1 mg/dL (8.4-10.2); Creatinine 1 0.59 mg/dL (0.52-1.04); EST GLOMERULAR FILTRATION RATE 100.6 ML/MIN; Potassium 4.1 mmol/L (3.5-5.1); Total Protein 7.3 g/dL (6.3-8.2)
[2023-03-10 07:27] VITALS: TEMP 98.6
[2023-03-10] MEDS: ENOXAPARIN SODIUM SQ SCH (09:01)
[2023-03-10] MEDS: DELTASONE 20 MG PO SCH (09:01)
[2023-03-10] MEDS: Trileptal 300 MG Tablet PO SCH (09:02)
[2023-03-10] MEDS: Vibramycin 100 MG PO SCH (09:03)
[2023-03-10] MEDS: Tessalon Perles 100 MG PO PRN (09:03)
[2023-03-10] MEDS ORDERED: Geodon 20 MG Capsule PO SCH (10:00)
[2023-03-10] MEDS ORDERED: SYNTHROID 25 MCG PO SCH (10:00)
[2023-03-10] MEDS ORDERED: Flonase NASAL NS SCH (10:00)
[2023-03-10] MEDS ORDERED: CLARITIN 10 MG PO SCH (10:00)
[2023-03-10] MEDS ORDERED: NORVASC 5 MG PO SCH (10:00)
[2023-03-10] MEDS ORDERED: NON-FORMULARY ITEM (Vortioxetine Hydrobromide [Trintellix] 10 MG Tablet) PO SCH (10:00)
[2023-03-10] MEDS ORDERED: Protonix 40MG Tablet PO SCH (10:00)
[2023-03-10 10:19] LABS: 027 TOX PROD PRESUMPTIVE NEGATIVE (NEGATIVE); TOXIGENIC C. DIFF ORG NEGATIVE (NEGATIVE)
[2023-03-10] MEDS: Nicoderm CQ 21 MG TOP SCH (11:30)
[2023-03-10 12:00] VITALS: BP 140/69; PULSE 66; RESP 23; O2SAT 89
--- NOTE | 2023-03-10 12:13 | PCM.DS ---
Discharge Summary Date of Admission: 03/09/23 13:31 Date of Discharge: 03/10/23 Admitting Physician: TRUDI CASTRO MD Consults: Consults on Case 03/09/23 14:56 Case Management SDND DC Needs Assessment ROUTINE Primary Care Provider: NO FAMILY DOCTOR Allergies Allergies diazepam Allergy (Severe, Verified 03/09/23 09:57) Difficulty Breathing total body hives donepezil Allergy (Unknown, Verified 03/09/23 09:57) latex Allergy (Unknown, Verified 03/09/23 09:57) Penicillins Allergy (Unknown, Verified 03/09/23 09:57) Latex, Natural Rubber Allergy (Verified 03/09/23 09:57) Difficulty Breathing total body hives valbenazine [From Ingrezza] Allergy (Verified 03/09/23 09:57) Difficulty Breathing total body hives Hospital Summary - Hospital Course Hospital Course: 03/09/23 is a 62 year old female with PMHX of seizures, hyperlipidemia, HTN, asthma, COPD, hypothyroidism, arthritis, RA, DJD, GERD, anxiety, bipolar, and daily smoker. She presented to our ED as a referral from her nurse practitioner Mary Levy, in [place] for IV fluids to treat chronic diarrhea. Patient has had an ongoing cough and shortness of breath that has been progressive. Patient states that she was diagnosed with bronchitis but her symptoms are worsening. No associated chest pain. No nausea vomiting or diaphoresis. No fever. Symptoms are moderate in intensity. No specific worsening or improving factors. D-dimer elevated in ER and CT with PE protocol negative for PE. She reports having flu sxs for over 1 week now. She was + for flu A in ER. She was given IV antibiotics, steriods, duoneb, and fluid bolus in the ER for COPD exacerbation and diarrhea. She is 92 % RA. She is feeling better. Will continue with ER plan of care and most likely d/c tomorrow. 03/10/23 Pt resting in chair. She is feeling much better and would like to go home. She had 1 loose stool since admission but diarrhea has resolved. She reports chronic loose stools. C-dif testing negative. She is not requiring oxygen and no longer SOB. Lung sounds are clear. She denies CP, SOB, abd. pain, N/V/D. - Vitals & Intake/Output Vital Signs: Vital Signs Temperature 98.6 F 03/10/23 11:59 Pulse Rate 66 03/10/23 11:59 Respiratory Rate 23 03/10/23 11:59 Blood Pressure 140/69 03/10/23 11:59 O2 Sat by Pulse Oximetry 89 L 03/10/23 11:59 Intake & Output: Intake & Output 03/08/23 03/09/23 03/10/23 03/11/23 11:59 11:59 11:59 11:59 Intake Total 2737 720 Balance 2737 720 Weight 71 kg 67.5 kg - Lab Result Diagrams: 03/10/23 05:05 03/10/23 05:05 Lab Results-Last 24 Hrs: Lab Results-Last 24 Hours 03/09/23 03/09/23 03/10/23 Range/Units 13:43 17:39 05:05 WBC 4.8 (4.0-10.5) x10^3/uL RBC 4.21 (4.1-5.4) x10^6/uL Hgb 12.3 (12.0-16.0) g/dL Hct 39.4 (35-47) % MCV 93.6 (78-100) fL MCH 29.2 (26-32) pg MCHC 31.2 L (32-36) g/dL RDW 13.0 (11.5-14.0) % Plt Count 208 (150-450) x10^3/uL MPV 10.7 (7.5-11.0) fL Sodium (137-145) mmol/L Potassium (3.5-5.1) mmol/L Chloride (98-107) mmol/L Carbon Dioxide (22-30) mmol/L Anion Gap (5-15) MEQ/L BUN (7-17) mg/dL Creatinine (0.52-1.04) mg/dL Estimated GFR ML/MIN Glucose (74-106) mg/dL Calcium (8.4-10.2) mg/dL Total Bilirubin (0.2-1.3) mg/dL AST (14-36) U/L ALT (0-35) U/L Alkaline Phosphatase (38-126) U/L Troponin I < 0.012 < 0.012 (0.000-0.034) ng/mL Serum Total Protein (6.3-8.2) g/dL Albumin (3.5-5.0) g/dL C. difficile Screen (NEGATIVE) C.difficile [id number]-[id number] (NEGATIVE) 03/10/23 03/10/23 Range/Units 05:05 09:14 WBC (4.0-10.5) x10^3/uL RBC (4.1-5.4) x10^6/uL Hgb (12.0-16.0) g/dL Hct (35-47) % MCV (78-100) fL MCH (26-32) pg MCHC (32-36) g/dL RDW (11.5-14.0) % Plt Count (150-450) x10^3/uL MPV (7.5-11.0) fL Sodium 137 (137-145) mmol/L Potassium 4.1 (3.5-5.1) mmol/L Chloride 108 H (98-107) mmol/L Carbon Dioxide 23 (22-30) mmol/L Anion Gap 11.1 (5-15) MEQ/L BUN 10 (7-17) mg/dL Creatinine 0.59 (0.52-1.04) mg/dL Estimated GFR 100.6 ML/MIN Glucose 127 H (74-106) mg/dL Calcium 9.1 (8.4-10.2) mg/dL Total Bilirubin 0.30 (0.2-1.3) mg/dL AST 41 H (14-36) U/L ALT 21 (0-35) U/L Alkaline Phosphatase 117 (38-126) U/L Troponin I (0.000-0.034) ng/mL Serum Total Protein 7.3 (6.3-8.2) g/dL Albumin 4.1 (3.5-5.0) g/dL C. difficile Screen NEGATIVE (NEGATIVE) C.difficile 027-NAP1-B1 PRESUMPTIVE NEGATIVE (NEGATIVE) - Radiology Exams Ordered Rad Exams-Entire Visit: Radiology Procedures Category Date Time Status CHEST WITH CONTRAST [CT] Stat Exams 03/09/23 10:13 Completed - Procedures and Test Procedures and Tests throughout Hospitalization: Therapy Orders & Screens 03/09/23 13:14 Respiratory Therapy Assessment DAILY Comment: 03/09/23 14:56 Smoking Cessation Education ONCE Comment: Diagnosis: COPD exacerbation, diarrhea Smoking Status: Current every day smoker How long have you smoked: yrs Approximately how many cigarettes per day: 20 Do you dip or chew tobacco: No Discharge Exam General Appearance: no apparent distress, alert Neurologic Exam: alert, oriented x 3, cooperative, normal mood/affect, nml cerebellar function, sensation nml, No motor deficits Eye Exam: PERRL, EOMI, eyes nml inspection Ears, Nose, Throat Exam: normal ENT inspection, pharynx normal, moist mucous membranes Neck Exam: normal inspection, non-tender, supple, full range of motion Respiratory Exam: normal breath sounds, lungs clear, No respiratory distress Cardiovascular Exam: regular rate/rhythm, normal heart sounds Gastrointestinal/Abdomen Exam: soft, No tenderness, No mass Pelvic Exam: deferred Rectal Exam: deferred Back Exam: normal inspection, normal range of motion, No CVA tenderness, No vertebral tenderness Extremity Exam: normal inspection, normal range of motion Skin Exam: normal color, warm, dry Final Diagnosis/Problem List - Final Discharge Diagnosis/Problem (1) COPD exacerbation Current Visit: Yes Status: Acute Code(s): J44.1 - CHRONIC OBSTRUCTIVE PULMONARY DISEASE W (ACUTE) EXACERBATION (2) Dehydration Current Visit: Yes Status: Acute Code(s): E86.0 - DEHYDRATION (3) Diarrhea Current Visit: Yes Status: Acute Code(s): R19.7 - DIARRHEA, UNSPECIFIED (4) Fatty liver Current Visit: Yes Status: Acute Code(s): K76.0 - FATTY (CHANGE OF) LIVER, NOT ELSEWHERE CLASSIFIED (5) Hyponatremia Current Visit: Yes Status: Acute Code(s): E87.1 - HYPO-OSMOLALITY AND HYPONATREMIA (6) Influenza A Current Visit: Yes Status: Acute Code(s): J10.1 - FLU DUE TO OTH IDENT INFLUENZA VIRUS W OTH RESP MANIFEST (7) GERD (gastroesophageal reflux disease) Current Visit: Yes Status: Chronic Code(s): K21.9 - GASTRO-ESOPHAGEAL REFLUX DISEASE WITHOUT ESOPHAGITIS (8) Elevated d-dimer Current Visit: Yes Status: Acute Code(s): R79.89 - OTHER SPECIFIED ABNORMAL FINDINGS OF BLOOD CHEMISTRY (9) Smoker Current Visit: Yes Status: Chronic Assessment & Plan: (1) COPD exacerbation Current Visit: Yes Status: Acute Assessment & Plan: - Steriods, duoneb, and doxycycline gave in ER- continue - benzonatate for cough - Tele - RA 92%- Keep O2 > 92% - RT eval and treat - Chest CT 03/09/23 Impression: 1. Negative pulmonary embolus. No acute cardiopulmonary abnormalities. 2. Chronic findings including small hiatal hernia, fatty liver, chronic bony findings, and old granulomatous disease. 03/10 - RA - SOB improved Code(s): J44.1 - CHRONIC OBSTRUCTIVE PULMONARY DISEASE W (ACUTE) EXACERBATION (2) Dehydration Current Visit: Yes Status: Acute Assessment & Plan: - IVF bolus gave in ER - IVF - 2:2 Flu A Code(s): E86.0 - DEHYDRATION (3) Diarrhea Current Visit: Yes Status: Acute Assessment & Plan: - 2:2 Flu A - IVF - BRAT diet - C-dif test-if negative can start Imodium 03/10 - C-Dif negative Code(s): R19.7 - DIARRHEA, UNSPECIFIED (4) Fatty liver Current Visit: Yes Status: Acute Assessment & Plan: - as seen on CT - F/U OP Code(s): K76.0 - FATTY (CHANGE OF) LIVER, NOT ELSEWHERE CLASSIFIED (5) Hyponatremia Current Visit: Yes Status: Acute Assessment & Plan: - mild 131- trend - IVF 03/10 - Na+ 137- improved Code(s): E87.1 - HYPO-OSMOLALITY AND HYPONATREMIA (6) Influenza A Current Visit: Yes Status: Acute Assessment & Plan: - Dx over 1 week ago - Unable to give Tamiflu at this time since > 1 week. - Supportive care Code(s): J10.1 - FLU DUE TO OTH IDENT INFLUENZA VIRUS W OTH RESP MANIFEST (7) GERD (gastroesophageal reflux disease) Current Visit: Yes Status: Chronic Assessment & Plan: - Continue omeprazole Code(s): K21.9 - GASTRO-ESOPHAGEAL REFLUX DISEASE WITHOUT ESOPHAGITIS (8) Elevated d-dimer Current Visit: Yes Status: Acute Assessment & Plan: - D-Dimer 0.71 - CT chest 03/09 Impression: 1. Negative pulmonary embolus. No acute cardiopulmonary abnormalities. 2. Chronic findings including small hiatal hernia, fatty liver, chronic bony findings, and old granulomatous disease. Code(s): R79.89 - OTHER SPECIFIED ABNORMAL FINDINGS OF BLOOD CHEMISTRY (9) Smoker Current Visit: Yes Status: Chronic Assessment & Plan: - advised cessation - Nicotine patch Code(s): F17.200 - NICOTINE DEPENDENCE, UNSPECIFIED, UNCOMPLICATED - Discharge Discharge Date: 03/10/23 Disposition: Home, Self-Care Condition: Stable Prescriptions: New Prednisone 20 mg [Deltasone 20 mg] 20 mg PO BID 4 Days #7 tablet Nicotine 21 mg [Nicoderm CQ 21 MG] 21 mg TOP Q24H10 28 Days #28 patch Doxycycline Hyclate 100 mg [Vibramycin 100 MG] 100 mg PO BID 4 Days #7 tablet Continue Omeprazole 20 mg PO DAILY Nitroglycerin 0.4 mg Tablet [Nitrostat 0.4 MG Tablet] 0.4 mg SL UD Ipratropium [place] 0.5 mg [Atrovent 0.5MG NEBULE] 1 neb PO QID Amlodipine Besylate 5 mg [Norvasc 5 mg] 5 mg PO DAILY OXcarbazepine [Trileptal] 1 tab PO BID Cetirizine HCl 1 tab PO DAILY Ziprasidone 20 mg [Geodon 20 MG Capsule] 1 cap PO DAILY Levothyroxine Sodium 25 Mcg [Synthroid 25 Mcg] 1 tab PO DAILY ziprasidone HCL [Ziprasidone HCl] 1 cap PO HS Albuterol 8 gm Mdi Hfa [Ventolin Hfa MDI] 2 puff PO Q4H PRN PRN PRN Reason: Shortness Of Breath Pravastatin Sodium 1 tab PO HS Mometasone Furoate [Nasonex 24Hr Allergy] 1 spray INTRANASAL DAILY Mirtazapine 30 mg [Remeron 30 mg] 1 tab PO HS Vortioxetine Hydrobromide [Trintellix] 1 tab PO DAILY Follow up with: MARY LEVY FNP [NON-STAFF PHY W/O PRIVILEGES] - 03/16/23 9:20 am ([facility])
== END 2023-03-10 13:46 | disposition home or self-care (01) ==
LOC: ED 09:15 → MED SURG 13:31
PROVIDERS: ADMIT Internal Medicine; ATTEND Internal Medicine
DX: J44.1 Chronic obstructive pulmonary disease with (acute) exacerbation (principal); E86.0 Dehydration; R19.7 Diarrhea, unspecified; K76.0 Fatty (change of) liver, not elsewhere classified; E87.1 Hypo-osmolality and hyponatremia; J10.1 Influenza due to other identified influenza virus with other respiratory manifestations; K21.9 Gastro-esophageal reflux disease without esophagitis; R79.89 Other specified abnormal findings of blood chemistry; E78.5 Hyperlipidemia, unspecified; E03.9 Hypothyroidism, unspecified; I10 Essential (primary) hypertension; F17.200 Nicotine dependence, unspecified, uncomplicated; Z79.899 Other long term (current) drug therapy; Z20.828 Contact with and (suspected) exposure to other viral communicable diseases; Z59.41 Food insecurity
CPT/HCPCS: 0241U; 36000; 36415; 71260; 80053; 83605; 84484; 85025; 85027; 85379; 87040; 87493; 93005; 93041; 94640; 94760; 94762; 96374; 99285; Q3014; 93268; J1650; J2930; A9270-GY; G0378

== ENCOUNTER 2023-05-25 14:20 | Day surgery (SDC) | payer MEDICARE ==
[2023-05-25] MEDS ORDERED: LIDOCAINE HCL 1% 50 MG/5 ML VL PF IJ ONE (14:21)
[2023-05-25] MEDS ORDERED: BUPIVACAINE 0.5% VIAL IJ ONE (14:21)
[2023-05-25] MEDS ORDERED: Depo-Medrol 40 MG/ML IM ONE (14:21)
[2023-05-25] MEDS ORDERED: DIPRIVAN 200 MG/20 ML IV ONE (16:09)
[2023-05-25] MEDS ORDERED: BENADRYL 50 MG/ML ONE ×2 (16:17)
[2023-05-25] MEDS ORDERED: Lactated Ringers 1,000 ML IV ONE (17:24)
--- NOTE | 2023-05-25 19:09 | XRAY ---
Indication: Bilateral hip injection. Intraoperative fluoroscopy provided for 22 seconds. 3 digital spot image submitted for interpretation demonstrates needle tip projecting lateral to left and right femur necks. Small amount of contrast injected for needle tip placement. Correlate with intraoperative findings/report.
--- NOTE | 2023-05-26 08:49 | XRAY ---
22 seconds of fluoroscopy was used in surgery for a bilateral intra-articular hip injection.
== END 2023-05-25 16:42 | disposition home or self-care (01) ==
LOC: SDC-PAIN 14:20
PROVIDERS: ATTEND Psychiatry & Neurology Pain Medicine
DX: M16.0 Bilateral primary osteoarthritis of hip (principal)
CPT/HCPCS: 20610; 73521; 77002; J1030; J1200; J2001; J2704; Q9966

== ENCOUNTER 2023-06-10 18:42 | Emergency (ER) | payer MEDICARE ==
[2023-06-10 18:49] VITALS: BP 191/61; PULSE 83; RESP 18; TEMP 97.7; O2SAT 98
--- NOTE | 2023-06-10 19:04 | ERPHSYRPT ---
- History of Present Illness Time Seen by Provider: 06/10/23 19:03 Source: patient Exam Limitations: no limitations Patient Subjective Stated Complaint: pt here for pain to right knee today, she states she was walking and turned and heard her knee pop. she states she has to walk with a cane now Triage Nursing Assessment: pt alert, resp easy, arrived per , skin w/d/p. able to transfer from to bed with no assistance, no swelling noted to knee, Physician History: This is a 62-year-old white female patient who on 05/30/2023 had fallen and injured her left knee fairly extensively. She underwent an x-ray of the right knee on 05/30/2023 which showed minimal medial joint space narrowing and evidence of an effusion. On 06/07/2023 she underwent an MRI of the left lower extremity/knee which showed several different tears of the menisci as well as partial tears of posterior cruciate and lateral collateral ligaments. Today, patient was walking and she turned suddenly and then felt a pop in her right knee. Ever since then she has been using a cane. Patient states she is not on any narcotic pain medicine at this time. Patient drove herself into the emergency department and cannot get a ride home. Patient has an appointment to see a pain specialist on 06/14/2023. Patient has a history of hypothyroidism, hypertension and hyperlipidemia. Patient denies chest pain. Patient denies shortness of breath. Method of Injury: twisted Occurred: this afternoon Quality: constant, throbbing Severity of Pain-Max: moderate Severity of Pain-Current: moderate Lower Extremities Pain: knee: right Modifying Factors: Improves With: movement Associated Symptoms: other (Hurts to bear weight but can do so) Allergies/Adverse Reactions: diazepam Allergy (Severe, Verified 06/10/23 18:50) Difficulty Breathing total body hives donepezil Allergy (Unknown, Verified 06/10/23 18:50) latex Allergy (Unknown, Verified 06/10/23 18:50) Penicillins Allergy (Unknown, Verified 06/10/23 18:50) Latex, Natural Rubber Allergy (Verified 06/10/23 18:50) Difficulty Breathing total body hives valbenazine [From Ingrezza] Allergy (Verified 06/10/23 18:50) Difficulty Breathing total body hives Home Medications: Amlodipine Besylate 5 mg [Norvasc 5 mg] 5 mg PO DAILY 12/15/21 [History] Ipratropium [place] 0.5 mg [Atrovent 0.5MG NEBULE] 1 neb PO QID 12/15/21 [ History] Nitroglycerin 0.4 mg Tablet [Nitrostat 0.4 MG Tablet] 0.4 mg SL UD 12/15/21 [History] Omeprazole 20 mg PO DAILY 12/15/21 [History] Albuterol 8 gm Mdi Hfa [Ventolin Hfa MDI] 2 puff PO Q4H PRN PRN 03/09/23 [History] Cetirizine HCl 1 tab PO DAILY 03/09/23 [History] Levothyroxine Sodium 25 Mcg [Synthroid 25 Mcg] 1 tab PO DAILY 03/09/23 [History] Mirtazapine 30 mg [Remeron 30 mg] 1 tab PO HS 03/09/23 [History] Mometasone Furoate [Nasonex 24Hr Allergy] 1 spray INTRANASAL DAILY 03/09/23 [History] OXcarbazepine [Trileptal] 1 tab PO BID 03/09/23 [History] Pravastatin Sodium 1 tab PO HS 03/09/23 [History] Vortioxetine Hydrobromide [Trintellix] 1 tab PO DAILY 03/09/23 [History] Ziprasidone 20 mg [Geodon 20 MG Capsule] 1 cap PO DAILY 03/09/23 [History] ziprasidone HCL [Ziprasidone HCl] 1 cap PO HS 03/09/23 [History] Hx Tetanus, Diphtheria Vaccination/Date Given: (unsure) Hx Influenza Vaccination/Date Given: No Hx Pneumococcal Vaccination/Date Given: Yes Immunizations Up to Date: Yes Travel Risk - International Travel Have you traveled outside of the country in past 3 weeks: No - Emerging Infectious Disease Are you exhibiting symptoms associated with any current EIDs: No - Review of Systems Constitutional: No Symptoms Eyes: No Symptoms Ears, Nose, & Throat: No Symptoms Respiratory: No Symptoms Cardiac: No Symptoms Abdominal/Gastrointestinal: No Symptoms Genitourinary Symptoms: No Symptoms Musculoskeletal: Injury (Right knee) Skin: No Symptoms Neurological: No Symptoms Psychological: No Symptoms Endocrine: No Symptoms Hematologic/Lymphatic: No Symptoms Immunological/Allergic: No Symptoms All Other Systems: Reviewed and Negative - Past Medical History Pertinent Past Medical History: Yes Neurological History: Seizures ENT History: No Pertinent History Cardiac History: High Cholesterol, Hypertension Respiratory History: COPD, Asthma Endocrine Medical History: Hypothyroidism Musculoskeletal History: Fractures, Arthritis, Rheumatoid Arthritis, Osteoarthritis, Osteoporosis, Degenerative Disk Disease GI Medical History: GERD History: No Pertinent History Psycho-Social History: Bipolar, Anxiety Female Reproductive Disorders: No Pertinent History Other Medical History: tardive dyskinesia, seeing dr piper for chest pain and heart murmer,. exocrine pancreatic insuff. pt poor historian. - Past Surgical History Past Surgical History: Yes Neuro Surgical History: No Pertinent History Cardiac: No Pertinent History Respiratory: No Pertinent History Gastrointestinal: Appendectomy, Cholecystectomy Genitourinary: No Pertinent History Musculoskeletal: Other Female Surgical History: Hysterectomy, Tubal Ligation Other Surgical History: right shoulder reconstruction - Social History Smoking Status: Current every day smoker How long have you smoked: yrs Exposure to second hand smoke: Yes Drug Use: none Patient Lives Alone: No - Nursing Vital Signs Nursing Vital Signs: Initial Vital Signs Temperature 97.7 F 06/10/23 18:48 Pulse Rate 83 06/10/23 18:48 Respiratory Rate 18 06/10/23 18:48 Blood Pressure 191/61 06/10/23 18:48 O2 Sat by Pulse Oximetry 98 06/10/23 18:48 Pain Scale Pain Intensity 10 - Physical Exam General Appearance: no apparent distress, alert, anxiety Eyes, Ears, Nose, Throat Exam: normal ENT inspection, moist mucous membranes Neck Exam: normal inspection, non-tender, supple, full range of motion Cardiovascular/Respiratory Exam: chest non-tender, no respiratory distress Gastrointestinal/Abdominal Exam: non-tender Back Exam: normal inspection, normal range of motion, No CVA tenderness, No vertebral tenderness Hips Exam: bilateral: non-tender, normal inspection, normal range of motion, no evidence of injury Legs Exam: bilateral leg: non-tender, normal inspection, normal range of motion, no evidence of injury Knees Exam: right knee: bone tenderness, soft tissue tenderness, left knee: non- tender, bilateral knee: normal inspection, normal range of motion, no evidence of injury Ankle Exam: bilateral ankle: non-tender, normal inspection, normal range of motion, no evidence of injury Foot Exam: bilateral foot: non-tender, normal inspection, normal range of motion, no evidence of injury Neuro/Tendon Exam: normal sensation, normal motor functions, normal tendon functions, responds to pain, no evidence tendon injury Mental Status Exam: alert, oriented x 3, cooperative Skin Exam: normal color, warm, dry SpO2 Interpretation: normal SpO2: 98 O2 Delivery: Room Air - Course Nursing assessment & vital signs reviewed: Yes Ordered Tests: Active Orders 24 hr Category Date Time Status KNEE (3 VIEWS) Stat Exams 06/10/23 19:01 Taken - Progress Progress: unchanged, pain not gone completely, re-examined Progress Note: 06/10/23 19:15 My medical decision making and the assignment of low complexity to this pat ient's medical issue today is based on review of the patient's past medical history, review the patient's medication list, review of patient drug allergy list, history present illness and physical findings on examination. The workup in this patient includes 3 view x-ray of the patient's right knee. Differential diagnosis right knee dislocation, right knee bony fractures, musculoskeletal pain, muscle spasms 06/10/23 19:25 I interpreted the x-ray of the right knee that was performed today. There is no evidence of any acute fracture or dislocation. Counseled pt/family regarding: diagnosis, need for follow-up, rad results Medical Desision Making - Diagnostic Testing Diagnostic test were ordered, analyzed, and reviewed by me: Yes Radiological Interpretation: Interpreted by me - Risk of complications The pt has a mod risk of morbidity or mortality based on: Need for prescription drug management - Departure Departure Disposition: Home Clinical Impression: Right knee pain Condition: Stable Critical Care Time: No Referrals: MARY HELTON FNP [Primary Care Provider] - Follow up/PCP as directed Additional Instructions: Wear William wrap to right knee for comfort. If there are no contraindications, use ibuprofen 600 mg orally with food 3 times a day for the next 5 days. Keep your pain specialist appointment on 06/14/2023. Call your primary care/prescriber on 06/13/2023, to make arrangements for further evaluation management in the next 3 to 5 days. Walk with your cane if needed. Prescriptions: Oxycodone HCl/Acetaminophen [Percocet 5-325 mg Tablet] 1 each PO Q12H PRN PRN #6 tablet MDD 2 PRN Reason: Moderate To Severe Pain
[2023-06-10] MEDS ORDERED: PERCOCET TABLET 5/325MG ONE (19:33)
[2023-06-10] MEDS: PERCOCET TABLET 5/325MG PO STA (19:34)
--- NOTE | 2023-06-11 07:45 | XRAY ---
Indication: Pain following twisting injury. Comparison: None 4 view right knee demonstrates osteopenia. No other bony, articular, or soft tissue abnormalities.
== END 2023-06-10 19:48 | disposition home or self-care (01) ==
LOC: ED 18:42
DX: M25.561 Pain in right knee (principal); W19.XXXD Unspecified fall, subsequent encounter
CPT/HCPCS: 73562; 99283; A9270-GY

== ENCOUNTER 2023-06-20 00:11 | Emergency (ER) | payer MEDICARE ==
[2023-06-20 00:19] VITALS: TEMP 98
--- NOTE | 2023-06-20 00:25 | ERPHSYRPT ---
- History of Present Illness Time Seen by Provider: 06/20/23 00:13 Source: patient Exam Limitations: no limitations Physician History: Pt states she was waling 9 days ago and felt a "pop" in her right knee with resultant pain which has worsened. Allergies/Adverse Reactions: diazepam Allergy (Severe, Verified 06/20/23 00:34) Difficulty Breathing total body hives donepezil Allergy (Unknown, Verified 06/20/23 00:34) latex Allergy (Unknown, Verified 06/20/23 00:34) Penicillins Allergy (Unknown, Verified 06/20/23 00:34) Latex, Natural Rubber Allergy (Verified 06/20/23 00:34) Difficulty Breathing total body hives valbenazine [From Ingrezza] Allergy (Verified 06/20/23 00:34) Difficulty Breathing total body hives Home Medications: Amlodipine Besylate 5 mg [Norvasc 5 mg] 5 mg PO DAILY 12/15/21 [History] Ipratropium [place] 0.5 mg [Atrovent 0.5MG NEBULE] 1 neb PO QID 12/15/21 [History] Nitroglycerin 0.4 mg Tablet [Nitrostat 0.4 MG Tablet] 0.4 mg SL UD 12/15/21 [History] Omeprazole 20 mg PO DAILY 12/15/21 [History] Albuterol 8 gm Mdi Hfa [Ventolin Hfa MDI] 2 puff PO Q4H PRN PRN 03/09/23 [History] Cetirizine HCl 1 tab PO DAILY 03/09/23 [History] Levothyroxine Sodium 25 Mcg [Synthroid 25 Mcg] 1 tab PO DAILY 03/09/23 [History] Mirtazapine 30 mg [Remeron 30 mg] 1 tab PO HS 03/09/23 [History] Mometasone Furoate [Nasonex 24Hr Allergy] 1 spray INTRANASAL DAILY 03/09/23 [History] OXcarbazepine [Trileptal] 1 tab PO BID 03/09/23 [History] Pravastatin Sodium 1 tab PO HS 03/09/23 [History] Vortioxetine Hydrobromide [Trintellix] 1 tab PO DAILY 03/09/23 [History] Ziprasidone 20 mg [Geodon 20 MG Capsule] 1 cap PO DAILY 03/09/23 [History] ziprasidone HCL [Ziprasidone HCl] 1 cap PO HS 03/09/23 [History] Prazosin HCl 5 mg PO HS 06/20/23 [History] Pregabalin 75 mg PO BID 06/20/23 [History] Hx Tetanus, Diphtheria Vaccination/Date Given: (unsure) Hx Influenza Vaccination/Date Given: No Hx Pneumococcal Vaccination/Date Given: Yes Travel Risk - Emerging Infectious Disease Are you exhibiting symptoms associated with any current EIDs: No - Review of Systems Musculoskeletal: Joint Pain (right knee) - Past Medical History Pertinent Past Medical History: Yes Neurological History: Seizures ENT History: No Pertinent History Cardiac History: High Cholesterol, Hypertension Respiratory History: COPD, Asthma Endocrine Medical History: Hypothyroidism Musculoskeletal History: Fractures, Arthritis, Rheumatoid Arthritis, Osteoarthritis, Osteoporosis, Degenerative Disk Disease GI Medical History: GERD History: No Pertinent History Psycho-Social History: Bipolar, Anxiety Female Reproductive Disorders: No Pertinent History Other Medical History: tardive dyskinesia, seeing dr piper for chest pain and heart murmer,. exocrine pancreatic insuff. pt poor historian. - Past Surgical History Past Surgical History: Yes Neuro Surgical History: No Pertinent History Cardiac: No Pertinent History Respiratory: No Pertinent History Gastrointestinal: Appendectomy, Cholecystectomy Genitourinary: No Pertinent History Musculoskeletal: Other Female Surgical History: Hysterectomy, Tubal Ligation Other Surgical History: right shoulder reconstruction - Social History Smoking Status: Current every day smoker How long have you smoked: yrs Exposure to second hand smoke: Yes Drug Use: none Patient Lives Alone: No - Nursing Vital Signs Nursing Vital Signs: Initial Vital Signs Temperature 98.0 F 06/20/23 00:17 Pulse Rate 78 06/20/23 00:17 Respiratory Rate 20 06/20/23 00:17 Blood Pressure 176/94 06/20/23 00:17 O2 Sat by Pulse Oximetry 96 06/20/23 00:17 Pain Scale Pain Intensity 4 - Physical Exam General Appearance: alert Knees Exam: right knee: soft tissue tenderness (mild tenderness medially & laterally of the right knee with flexion limitation of 150 degrees.) Ankle Exam: right ankle: normal range of motion Foot Exam: right foot: normal range of motion Neuro/Tendon Exam: normal sensation Mental Status Exam: alert, cooperative Skin Exam: warm, dry SpO2 Interpretation: normal SpO2: 96 O2 Delivery: Room Air - CT Exams Right Lower Extremity CT Interpretation: Tele-radiologist Report (There is apparently circumscribed fluid density lesion postero-medial to the knee joint, suggestive of a Rojo's cyst, possibly ruptured. Correlation with MRI knee is suggested for further evaluation. Mild soft tissue swelling, subcutaneoous edema and fat stranding are noted around the knee joint.) Ordered Tests: Active Orders 24 hr Category Date Time Status William Bandage Application -[facility] STAT Care 06/20/23 02:04 Active Crutches STAT Care 06/20/23 02:04 Active LOWER EXTREMITY WO CONTRAST [CT] Stat Exams 06/20/23 00:23 Completed Medication Summary Discontinued Medications Generic Name Dose Route Start Last Admin Trade Name Katherin PRN Reason Stop Dose Admin Acetaminophen 650 mg 06/20/23 00:24 06/20/23 01:07 Acetaminophen 325 Mg Tablet PO 06/20/23 00:25 650 mg STAT ONE Administration Acetaminophen Confirm 06/20/23 01:07 Acetaminophen 325 Mg Tablet Administered 06/20/23 01:08 Dose 650 mg .ROUTE .STK-MED ONE - Progress Progress: unchanged Counseled pt/family regarding: diagnosis, rad results Medical Desision Making - Diagnostic Testing Diagnostic test were ordered, analyzed, and reviewed by me: Yes Radiological Interpretation: Teleradiologist Report - Departure Departure Disposition: Home Clinical Impression: right knee pain Condition: Stable Critical Care Time: No Referrals: MARY HELTON SHARE HOLDER [Primary Care Provider] - Follow up/PCP as directed Instructions: Knee Sprain (DC) Additional Instructions: Follow up with private doctor tomorrow. Use crutches for ambulation. No weight bearing on right foot for 4 days. Wear william wrap to right knee for the next 4 days.
[2023-06-20] MEDS: TYLENOL 325 MG PO ONE ×2 (01:07→02:45)
[2023-06-20] MEDS ORDERED: TYLENOL 325 MG ONE ×2 (01:07→02:45)
--- NOTE | 2023-06-20 01:52 | XRAY ---
CLINICAL HISTORY: right knee pain COMPARISON: None. TECHNIQUE: Contiguous axial CT images of the right lower extremity were obtained without IV contrast administration. Coronal and sagittal reformats are available. One of the following dose reduction techniques were utilized for this exam: Automated exposure control, adjustment of the mA and/or kV according to patient size, and use of iterative reconstruction. FINDINGS: There is apparently circumscribed fluid density lesion postero-medial to the knee joint with the dimensions of 6.4 x 2.5 x 1.6 cm ([id number]). It lies in the intermuscular plane likely between the medial head of the gastrocnemius and the semimembranosus tendons. Findings are suggestive of a Rojo''s cyst, possibly ruptured. Correlation with MRI knee is suggested for further evaluatiion. Mild soft tissue swelling, subcutaneous edema and fat stranding are noted around the knee joint. Early minimal degenerative changes are seen at the knee joint with slightly reduced medial tibiofemoral articular space and small marginal osteophytes. Mild knee joint effusion is present. Mild free fluid is also noted in the suprapatellar recess.The bone mineral density is preserved. No definite fracture or dislocation is identified. No erosion or destructive bony lesion is seen. No lytic or sclerotic focus is identified. No evidence of acute or chronic osteomyelitis. No infiltrating soft tissue mass lesion is identified. No enlarged popliteal lymph node. IMPRESSION: 1. There is apparently circumscribed fluid density lesion postero-medial to the knee joint, suggestive of a Rojo's cyst, possibly ruptured. Correlation with MRI knee is suggested for further evaluation. 2. Mild soft tissue swelling, subcutaneous edema and fat stranding are noted around the knee joint. 3. Early minimal degenerative changes are seen at the knee joint along with mild knee joint effusion. ER was called at [phone] at 12:46 AM INS[employer] REPRESENTATIVE on 06/20/2023, and the results were communicated to Efren Gomez. Electronically Signed by: Sherry Staplse MD. (06/20/2023 01:47:44 EDT)
[2023-06-20 02:46] VITALS: BP 113/67; PULSE 78; RESP 20; O2SAT 94
== END 2023-06-20 02:53 | disposition home or self-care (01) ==
LOC: ED 00:11
DX: M25.561 Pain in right knee (principal); E78.5 Hyperlipidemia, unspecified; I10 Essential (primary) hypertension; Z79.899 Other long term (current) drug therapy; Z72.0 Tobacco use
CPT/HCPCS: 73700; 99283; A9270-GY

== ENCOUNTER 2023-06-20 12:07 | Emergency (ER) | payer MEDICARE | END 2023-06-20 12:27 | disposition left against medical advice (07) | LOC: ED 12:07 | DX: Z53.21 Procedure and treatment not carried out due to patient leaving prior to being seen by health care provider (principal) ==

== ENCOUNTER 2023-07-01 06:20 | Day surgery (SDC) | payer MEDICARE ==
[2023-07-01] MEDS ORDERED: Marcaine 0.5%/Epinephrine 10 ML IJ ONE (06:21)
[2023-07-01] MEDS ORDERED: Lactated Ringers 1,000 ML IV ONE ×2 (07:12→09:23)
[2023-07-01] MEDS: Lactated Ringers 1,000 ML IV SCH (07:16)
[2023-07-01] MEDS: CLINDAMYCIN-D5W 900 MG/50 ML*** 900 MG/50 ML BAG IV ONE (07:27)
[2023-07-01 08:06] LABS: Hemoglobin 11.2 g/dL (12.0-16.0); Mean Cell Volume 92.6 fL (78-100); Mean Corpuscular Hemoglobin 29.6 pg (26-32); Mean Platelet Volume 10.6 fL (7.5-11.0); Platelet Count 305 x10^3/uL (150-450); Red Blood Count 3.78 x10^6/uL (4.1-5.4); Red Cell Distribution Width 13.4 % (11.5-14.0); White Blood Count 10.3 x10^3/uL (4.0-10.5)
[2023-07-01] MEDS ORDERED: ROCURONIUM BROMIDE IV ONE (08:27)
[2023-07-01] MEDS ORDERED: DIPRIVAN 200 MG/20 ML IV ONE (08:27)
[2023-07-01] MEDS ORDERED: SUBLIMAZE 100 MCG/2 ML ONE (08:28)
[2023-07-01] MEDS ORDERED: Versed 2 MG/2 ML Injection ONE (08:28)
[2023-07-01] MEDS ORDERED: Zofran 4 MG/2 ML VIAL ONE (09:04)
[2023-07-01] MEDS ORDERED: BRIDION 200MG/2ML IV ONE (09:05)
--- NOTE | 2023-07-01 10:36 | OP ---
SURGERY DATE/TIME: 07/01/2023 0840 PREOPERATIVE DIAGNOSES: 1) Torn right medial and lateral menisci. 2) Chondromalacia of the patella. POSTOPERATIVE DIAGNOSES: 1) Torn right medial and lateral menisci. 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 PROCEDURES: 1) Arthroscopy of the right knee with partial medial and lateral meniscectomies. 2) Chondroplasties of the patella and lateral tibial plateau. SURGEON: Gino Hastings II, D.O. ANESTHESIA: General. DESCRIPTION OF PROCEDURE: The patient was identified and informed consent was obtained. The patient was then taken to the operative suite, placed in supine positon on the operating table where the general anesthetic was administered. Once an appropriate level of anesthesia had been obtained, a tourniquet was placed high on the right thigh and the right lower extremity was then placed in a knee . The right lower extremity was then prepped and draped in the usual sterile fashion. A standard time out was taken. At this point, the leg was exsanguinated and the tourniquet was then elevated to 350 mm of Mercury. A standard infralateral portal was created with an 11 blade. Trocar and camera were placed in the joint. The joint was distended with the arthroscopic pump. Inframedial portal was created with an 11 blade and the arthroscope was then placed into a cannula. At this point, the knee was inspected in a systematic fashion beginning in the suprapatellar pouch where there were no loose bodies or synovial hypertrophy. The under surface of the patella had grades II and III chondromalacia and a chondroplasty was performed with a shaver. The patella was seated nicely within the groove at about 30 degrees of flexion. The gutters were inspected and no loose bodies or synovial hypertrophy. The scope is placed in the medial compartment where a complex tear involving the posterior horn of the medial meniscus is encountered and this is resected with handheld biting instrument and shaved to a smooth transition with a shaver. Very minimal chondromalacia was noted on the medial femoral condyle and tibial plateau. Incidental shaving was accomplished. The intercondylar notch region was inspected and the anterior cruciate ligament was noted to be intact without evidence of attenuation or tears. The scope was placed in the lateral compartment where a radial tear was noted in the posterior horn of the lateral meniscus, this is also resected with a handheld biting instrument and shaved to a smooth transition with a shaver. There were some grades II and III chondromalacia noted on the medial portion of the lateral tibial plateau this is shaved with a shaver and chondroplasty performed. The knee was then re-inspected and copiously irrigated. No further pathology was identified. The instrumentation was removed and the portal sites were closed with interrupted 4-0 Nylon suture. The knee was infiltrated with 20 cc of 0.25% Marcaine with epinephrine into the joint and portal sites. Adaptic, 4x4 and a standard postoperative arthroscopy dressing applied. The patient was then transferred to the cart and taken to the recovery room in satisfactory condition having tolerated the procedure well.
[2023-07-01 10:45] VITALS: RESP 16; TEMP 97.9
[2023-07-01 11:27] VITALS: O2SAT 98
[2023-07-01 11:40] VITALS: BP 142/88; PULSE 78
== END 2023-07-01 14:15 | disposition home or self-care (01) ==
LOC: SDC 06:20
PROVIDERS: ATTEND Orthopaedic Surgery
DX: S83.281A Other tear of lateral meniscus, current injury, right knee, initial encounter (principal); S83.241A Other tear of medial meniscus, current injury, right knee, initial encounter; M22.41 Chondromalacia patellae, right knee
CPT/HCPCS: 36415; 85027; J2250; J2405; J2704; J3010

== ENCOUNTER 2023-07-09 11:27 | Emergency (ER) | payer MEDICARE ==
--- NOTE | 2023-07-09 11:38 | ERPHSYRPT ---
- History of Present Illness Time Seen by Provider: 07/09/23 11:37 Source: patient Exam Limitations: no limitations Physician History: This is a 63-year-old white female patient who drove herself into the emergency department because she was having right knee pain. Within the last couple weeks the patient underwent an arthroscopic procedure. She was seen last week in her postoperative appointment and was given a prescription of pain medicine which she ran out of this morning. She is concerned because she feels as though there is increased amount of pain and swelling in the right knee area as well as behind her right calf. Patient is a daily smoker of cigarettes. She does not have a history of bleeding or clotting disorders. She states that she has been icing the area and elevating the right lower extremity. Patient has a history of hyperlipidemia, gastroesophageal reflux disease, hypothyroidism, COPD, bipolar/anxiety disorder, rheumatoid arthritis, degenerative disc disease and seizure disorder. She does not have chest pain. She does not have shortness of breath. She does not have a cough Occurred: this morning Quality: aching Severity of Pain-Max: moderate Severity of Pain-Current: moderate Lower Extremities Pain: thigh: right Modifying Factors: Improves With: movement Associated Symptoms: other (Hurts to bear weight) Allergies/Adverse Reactions: diazepam Allergy (Severe, Verified 07/09/23 12:03) Difficulty Breathing total body hives donepezil Allergy (Unknown, Verified 07/09/23 12:03) latex Allergy (Unknown, Verified 07/09/23 12:03) Penicillins Allergy (Unknown, Verified 07/09/23 12:03) Shortness of Breath Latex, Natural Rubber Allergy (Verified 07/09/23 12:03) Difficulty Breathing total body hives valbenazine [From Ingrezza] Allergy (Verified 07/09/23 12:03) Difficulty Breathing total body hives Home Medications: Amlodipine Besylate 5 mg [Norvasc 5 mg] 5 mg PO DAILY 12/15/21 [History] Omeprazole 20 mg PO DAILY 12/15/21 [History] Cetirizine HCl 1 tab PO DAILY 03/09/23 [History] Levothyroxine Sodium 25 Mcg [Synthroid 25 Mcg] 1 tab PO DAILY 03/09/23 [History] Mirtazapine 30 mg [Remeron 30 mg] 1 tab PO HS 03/09/23 [History] Mometasone Furoate [Nasonex 24Hr Allergy] 1 spray INTRANASAL DAILY 03/09/23 [History] OXcarbazepine [Trileptal] 1 tab PO BID 03/09/23 [History] Pravastatin Sodium 1 tab PO HS 03/09/23 [History] Vortioxetine Hydrobromide [Trintellix] 1 tab PO DAILY 03/09/23 [History] Ziprasidone 20 mg [Geodon 20 MG Capsule] 1 cap PO DAILY 03/09/23 [History] ziprasidone HCL [Ziprasidone HCl] 1 cap PO HS 03/09/23 [History] Prazosin HCl 5 mg PO HS 06/20/23 [History] Pregabalin 75 mg PO BID 06/20/23 [History] Albuterol Sulfate [Ventolin Hfa] 8 gm IH DAILY 06/28/23 [History] Fluticasone/Umeclidin/Vilanter [Trelegy Ellipta 100-62.5-25] 1 each IH DAILY 06/28/23 [History] Naproxen 500 mg PO DAILY 06/28/23 [History] Hx Tetanus, Diphtheria Vaccination/Date Given: (unsure) Hx Influenza Vaccination/Date Given: No Hx Pneumococcal Vaccination/Date Given: Yes Travel Risk - International Travel Have you traveled outside of the country in past 3 weeks: No - Emerging Infectious Disease Are you exhibiting symptoms associated with any current EIDs: No - Review of Systems Constitutional: No Symptoms Eyes: No Symptoms Ears, Nose, & Throat: No Symptoms Respiratory: No Symptoms Cardiac: No Symptoms Abdominal/Gastrointestinal: No Symptoms Genitourinary Symptoms: No Symptoms Musculoskeletal: Joint Pain (Right knee. Postop pain and swelling) Skin: No Symptoms Neurological: No Symptoms Psychological: No Symptoms Endocrine: No Symptoms Hematologic/Lymphatic: No Symptoms Immunological/Allergic: No Symptoms All Other Systems: Reviewed and Negative - Past Medical History Pertinent Past Medical History: Yes Neurological History: Seizures ENT History: No Pertinent History Cardiac History: High Cholesterol, Hypertension Respiratory History: COPD, Asthma Endocrine Medical History: Hypothyroidism Musculoskeletal History: Fractures, Arthritis, Rheumatoid Arthritis, Osteoarthritis, Osteoporosis, Degenerative Disk Disease GI Medical History: GERD History: No Pertinent History Psycho-Social History: Bipolar, Anxiety Female Reproductive Disorders: No Pertinent History Other Medical History: tardive dyskinesia, seeing dr piper for chest pain and heart murmer,. exocrine pancreatic insuff. pt poor historian. - Past Surgical History Past Surgical History: Yes Neuro Surgical History: No Pertinent History Cardiac: No Pertinent History Respiratory: No Pertinent History Gastrointestinal: Appendectomy, Cholecystectomy Genitourinary: No Pertinent History Musculoskeletal: Other Female Surgical History: Hysterectomy, Tubal Ligation Other Surgical History: right shoulder reconstruction times 3 - Social History Smoking Status: Current every day smoker How long have you smoked: age 14 Exposure to second hand smoke: Yes Drug Use: none Patient Lives Alone: No - Nursing Vital Signs Nursing Vital Signs: Initial Vital Signs Temperature 98.5 F 07/09/23 11:52 Pulse Rate 85 07/09/23 11:52 Respiratory Rate 20 07/09/23 11:52 Blood Pressure 136/69 07/09/23 11:52 O2 Sat by Pulse Oximetry 96 07/09/23 11:52 Pain Scale Pain Intensity 5 - Physical Exam General Appearance: no apparent distress, alert, anxiety Eyes, Ears, Nose, Throat Exam: normal ENT inspection, moist mucous membranes Neck Exam: normal inspection, non-tender, supple, full range of motion Cardiovascular/Respiratory Exam: chest non-tender, no respiratory distress Gastrointestinal/Abdominal Exam: non-tender Back Exam: normal inspection, normal range of motion, No CVA tenderness, No vertebral tenderness Hips Exam: bilateral: non-tender, normal inspection, normal range of motion, no evidence of injury Legs Exam: bilateral leg: non-tender, normal inspection, normal range of motion, no evidence of injury Knees Exam: right knee: bone tenderness, soft tissue tenderness (Anterior as well as posterior calf), swelling, left knee: non-tender, normal inspection, normal range of motion, no evidence of injury Ankle Exam: bilateral ankle: non-tender, normal inspection, normal range of motion, no evidence of injury Foot Exam: bilateral foot: non-tender, normal inspection, normal range of motion, no evidence of injury Neuro/Tendon Exam: normal sensation, normal motor functions, normal tendon functions, responds to pain, no evidence tendon injury Mental Status Exam: alert, oriented x 3, cooperative Skin Exam: normal color, warm, dry SpO2 Interpretation: normal O2 Delivery: Room Air - Course Nursing assessment & vital signs reviewed: Yes Ordered Tests: Active Orders 24 hr Category Date Time Status KNEE (1 OR 2 VIEW) Stat Exams 07/09/23 12:28 Taken VENOUS UNILAT/LIMITED EXTREMIT [US] Stat Exams 07/09/23 12:26 Ordered - Progress Progress: unchanged, re-examined Progress Note: 07/09/23 12:36 My medical decision making, and the assignment of low to moderate complexity to this patient's medical issue today is based on review of the patient's past medical history, review the patient's medication list, review the patient drug allergy list, history present illness and physical findings on examination. The workup today includes plain x-ray of the patient's right knee. In addition, we will order a venous Doppler of the right lower extremity to evaluate for a DVT. Differential diagnosis includes postoperative pain, right knee fracture/dislocation, DVT 07/09/23 12:38 07/09/23 14:20 Venous Doppler right lower extremity is negative for DVT. There is a popliteal fossa fluid collection measures 6.2 cm in its greatest diameter. This is a postop fluid collection. 07/09/23 14:43 Interpreted the x-ray of the right knee. There is no evidence of any acute fracture or dislocation. Counseled pt/family regarding: diagnosis, need for follow-up, rad results Medical Desision Making - Diagnostic Testing Diagnostic test were ordered, analyzed, and reviewed by me: Yes Radiological Interpretation: Interpreted by me, Reviewed by me, Teleradiologist Report, Other (Cussed with shoe salesman/technologist) - Risk of complications The pt has a mod risk of morbidity or mortality based on: Need for prescription drug management - Departure Departure Disposition: Home Clinical Impression: Postoperative pain of right knee Condition: Stable Critical Care Time: No Referrals: MARY HELTON FNP [Primary Care Provider] - Follow up/PCP as directed Additional Instructions: Continue elevation and ice pack to the right knee. Call your primary care provider on 07/11/2023 to make arrangements for follow-up appointment for further evaluation management. Prescriptions: Oxycodone HCl/Acetaminophen [Percocet 5-325 mg Tablet] 1 each PO Q8H PRN PRN #6 tablet MDD 3 PRN Reason: Moderate To Severe Pain
[2023-07-09 12:03] VITALS: TEMP 98.5
[2023-07-09 13:47] VITALS: RESP 16; O2SAT 97
[2023-07-09 15:06] VITALS: BP 165/71; PULSE 70
--- NOTE | 2023-07-09 21:14 | XRAY ---
Indication: Postoperative pain. Comparison: None AP/lateral right knee demonstrates mild medial joint space narrowing and nonspecific effusion. No other bony, articular, or soft tissue abnormalities.
--- NOTE | 2023-07-09 21:14 | XRAY ---
Indication: Right leg pain and swelling. Status post surgery one week. Two-dimensional sonogram and color Doppler imaging major venous vessels right leg performed. Comparison: None No thrombus seen in the examined deep venous vessels right leg including greater saphenous vein. Veins demonstrate normal compressibility. Venous waveforms are normal with and without augmentation. Posterior knee demonstrates 3.4 x 2.3 x 6.8 cm popliteal cyst with thickened septations. Impression: Right leg negative for DVT. Incidental complex Rojo's cyst. Comment: Preliminary report was given.
== END 2023-07-09 15:08 | disposition home or self-care (01) ==
LOC: ED 11:27
DX: G89.18 Other acute postprocedural pain (principal); M25.561 Pain in right knee; M79.661 Pain in right lower leg; E78.5 Hyperlipidemia, unspecified; I10 Essential (primary) hypertension; Z79.891 Long term (current) use of opiate analgesic; Z79.899 Other long term (current) drug therapy; Z72.0 Tobacco use
CPT/HCPCS: 73560; 93971; 99283

== ENCOUNTER 2023-12-09 15:35 | Emergency (ER) | payer MEDICARE ==
--- NOTE | 2023-12-09 15:49 | ERPHSYRPT ---
- History of Present Illness Time Seen by Provider: 12/09/23 15:48 Source: patient, family Exam Limitations: no limitations Physician History: This is a 63-year-old white female patient who was brought into the emergency department by private vehicle escorted by her neighbor and who is a patient of nurse practitioner Bryon. Patient's primary care provider is out of the office today and and has multiple medical complaints today. Her primary issues today, which brought her to the emergency department, is her headache (she knows she has retinal hemorrhages bilaterally) as well as swelling in her bilateral lower extremities. Patient is a poor historian. 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 Patient denies chest pain. She denies shortness of breath. Patient has a history of hyperlipidemia, gastroesophageal reflux disease, hypothyroidism, COPD, asthma, bipolar disorder, anxiety, rheumatoid arthritis, degenerative disc disease, seizure disorder and hypertension. She is also complaining of an acute exacerbation of her fibromyalgia. Timing/Duration: other (Chronic) Severity: moderate Associated Symptoms: other (Headache and mild bilateral lower extremity swelling) Allergies/Adverse Reactions: diazepam Allergy (Severe, Verified 12/09/23 16:02) Difficulty Breathing total body hives donepezil Allergy (Unknown, Verified 12/09/23 16:02) latex Allergy (Unknown, Verified 12/09/23 16:02) Penicillins Allergy (Unknown, Verified 12/09/23 16:02) Shortness of Breath Latex, Natural Rubber Allergy (Verified 12/09/23 16:02) Difficulty Breathing total body hives valbenazine [From Ingrezza] Allergy (Verified 12/09/23 16:02) Difficulty Breathing total body hives Home Medications: Amlodipine Besylate 5 mg [Norvasc 5 mg] 5 mg PO DAILY 12/15/21 [History] Omeprazole 20 mg PO DAILY 12/15/21 [History] Cetirizine HCl 1 tab PO DAILY 03/09/23 [History] Levothyroxine Sodium 25 Mcg [Synthroid 25 Mcg] 1 tab PO DAILY 03/09/23 [History] Mirtazapine 30 mg [Remeron 30 mg] 1 tab PO HS 03/09/23 [History] Mometasone Furoate [Nasonex 24Hr Allergy] 1 spray INTRANASAL DAILY 03/09/23 [History] OXcarbazepine [Trileptal] 1 tab PO BID 03/09/23 [History] Pravastatin Sodium 1 tab PO HS 03/09/23 [History] Vortioxetine Hydrobromide [Trintellix] 1 tab PO DAILY 03/09/23 [History] Ziprasidone 20 mg [Geodon 20 MG Capsule] 1 cap PO DAILY 03/09/23 [History] ziprasidone HCL [Ziprasidone HCl] 1 cap PO HS 03/09/23 [History] Prazosin HCl 5 mg PO HS 06/20/23 [History] Pregabalin 75 mg PO BID 06/20/23 [History] Albuterol Sulfate [Ventolin Hfa] 8 gm IH DAILY 06/28/23 [History] Fluticasone/Umeclidin/Vilanter [Trelegy Ellipta 100-62.5-25] 1 each IH DAILY 06/28/23 [History] Naproxen 500 mg PO DAILY 06/28/23 [History] Hx Tetanus, Diphtheria Vaccination/Date Given: (unsure) Hx Influenza Vaccination/Date Given: No Hx Pneumococcal Vaccination/Date Given: Yes Travel Risk - International Travel Have you traveled outside of the country in past 3 weeks: No - Emerging Infectious Disease Are you exhibiting symptoms associated with any current EIDs: No - Review of Systems Constitutional: No Symptoms Eyes: No Symptoms Ears, Nose, & Throat: No Symptoms Respiratory: No Symptoms Cardiac: No Symptoms Abdominal/Gastrointestinal: No Symptoms Genitourinary Symptoms: No Symptoms Musculoskeletal: Arthralgias, Myalgias Neurological: Headache Psychological: No Symptoms Endocrine: No Symptoms Hematologic/Lymphatic: No Symptoms Immunological/Allergic: No Symptoms All Other Systems: Reviewed and Negative - Past Medical History Pertinent Past Medical History: Yes Neurological History: Dementia, Other ENT History: No Pertinent History Cardiac History: Angina, High Cholesterol, Hypertension, Other Respiratory History: Asthma, COPD Endocrine Medical History: Hypothyroidism Musculoskeletal History: Osteoarthritis GI Medical History: GERD History: No Pertinent History Psycho-Social History: Bipolar, Anxiety Female Reproductive Disorders: No Pertinent History Other Medical History: [facility] HAS SLIGHT CASE OF COGNITIVE IMPAIRMENT BY DR AUSTIN. [facility] PCP TOLD HER SHE HAD EARLY DEMENTIA. [facility] HAS [facility] AND SEES DR. MARIE. PATIENT REPORTS HX OF ANGINA AND HAS NITROGLYCERIN BUT HASN'T HAD TO TAKE IT. HAS OA NECK, SHOULDERS AND BOTH KNEES. ALSO ANXIETY AND DEPRESSION - Past Surgical History Past Surgical History: Yes Neuro Surgical History: No Pertinent History Cardiac: No Pertinent History Respiratory: No Pertinent History Gastrointestinal: Appendectomy, Cholecystectomy Genitourinary: No Pertinent History Musculoskeletal: Other Female Surgical History: Hysterectomy, Tubal Ligation Other Surgical History: right shoulder reconstruction times 3 - Social History Smoking Status: Current every day smoker How long have you smoked: age 14 Exposure to second hand smoke: Yes Drug Use: none Patient Lives Alone: No - Social Determinants of Health Will the patient participate in the screening: Yes Do you worry about a steady place to live?: No In the past 12 months,have you had to go without utilities?: No Transportation Issues: Yes Has anyone in your support network made you feel unsafe?: No Have you or anyone in your house had to go without enough: No Comment: gets assistance at food pantry - Nursing Vital Signs Nursing Vital Signs: Initial Vital Signs Temperature 97.4 F 12/09/23 15:55 Pulse Rate 83 12/09/23 15:55 Respiratory Rate 18 12/09/23 15:55 Blood Pressure 170/102 12/09/23 15:55 O2 Sat by Pulse Oximetry 98 12/09/23 15:55 Pain Scale Pain Intensity 8 - Physical Exam General Appearance: no apparent distress, alert, anxiety Eye Exam: PERRL/EOMI, eyes nml inspection Ears, Nose, Throat Exam: normal ENT inspection, moist mucous membranes Neck Exam: normal inspection, non-tender, supple, full range of motion Respiratory Exam: normal breath sounds, lungs clear, airway intact, No chest tenderness, No respiratory distress Cardiovascular Exam: regular rate/rhythm, normal heart sounds, normal peripheral pulses Gastrointestinal/Abdomen Exam: soft, normal bowel sounds, No tenderness Pelvic Exam: not done Rectal Exam: not done Back Exam: normal inspection, normal range of motion, No CVA tenderness, No vertebral tenderness Extremity Exam: normal range of motion, pelvis stable, swelling (Trace swelling in bilateral feet and ankles. 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, sensation nml Skin Exam: normal color, warm, dry Lymphatic Exam: No adenopathy SpO2 Interpretation: normal O2 Delivery: Room Air - Course Nursing assessment & vital signs reviewed: Yes Ordered Tests: Active Orders 24 hr Category Date Time Status EKG-ER Only STAT Care 12/09/23 16:53 Active ACO SDOH Referral ONCE Cons 12/09/23 16:02 Active HEAD WITHOUT CONTRAST [CT] Stat Exams 12/09/23 16:54 Taken CBC W DIFF Stat Lab 12/09/23 17:39 Completed CMP Stat Lab 12/09/23 17:39 Completed ETHYL ALCOHOL Stat Lab 12/09/23 17:39 Completed Manual Differential NC Stat Lab 12/09/23 17:39 Completed UA W/RFX UR CULTURE Stat Lab 12/09/23 16:58 Completed Urine Triage Profile Stat Lab 12/09/23 16:58 Completed Medication Summary Discontinued Medications Generic Name Dose Route Start Last Admin Trade Name Freq PRN Reason Stop Dose Admin Morphine Sulfate 4 mg 12/09/23 17:10 12/09/23 17:26 Morphine Sulfate 4 Mg/Ml Injection IM 12/09/23 17:11 4 mg STAT ONE Administration Morphine Sulfate Confirm 12/09/23 17:23 Morphine Sulfate 4 Mg/Ml Injection Administered 12/09/23 17:24 Dose 4 mg .ROUTE .STK-MED ONE Ondansetron HCl 4 mg 12/09/23 17:10 12/09/23 17:26 Zofran 4 Mg/Udtablet Orally Disintegrating PO 12/09/23 17:11 4 mg STAT ONE Administration Ondansetron HCl Confirm 12/09/23 17:23 Zofran 4 Mg/Udtablet Orally Disintegrating Administered 12/09/23 17:24 Dose 4 mg .ROUTE .STK-MED ONE Lab/Rad Data: Laboratory Result Diagrams 12/09/23 17:39 12/09/23 17:39 Laboratory Results 12/09/23 12/09/23 12/09/23 Range/Units 17:39 17:39 16:58 WBC 8.2 (3.98-10.04) x10^3/uL RBC 3.67 L (3.93-5.22) x10^6/uL Hgb 10.7 L (11.2-15.7) g/dL Hct 33.8 L (34.1-44.9) % MCV 92.1 (79.4-94.8) fL MCH 29.2 (25.6-32.2) pg MCHC 31.7 L (32.2-35.5) g/dL RDW 13.8 (11.7-14.4) % Plt Count 266 (182-369) x10^3/uL MPV 9.6 (9.4-12.3) fL Gran % 58.9 (34.0-71.1) % Immature Gran % (Auto) 0.4 (0.001-0.429) % Nucleat RBC Rel Count 0.0 (0.00-0.2) % Eos # (Auto) 0.19 (0.04-0.36) x10^3/uL Immature Gran # (Auto) 0.03 (0.001-0.031) x10^3u/L Absolute Lymphs (auto) 2.41 (1.18-3.74) x10^3/uL Absolute Monos (auto) 0.69 (0.24-0.86) x10^3/uL Absolute Nucleated RBC 0.00 (0.00-0.012) x10^3u/L Lymphocytes % 29.3 (19.3-51.7) % Monocytes % 8.4 (4.7-12.5) % Eosinophils % 2.3 (0.7-5.8) % Basophils % 0.7 (0.1-1.2) % Absolute Granulocytes 4.84 (1.56-6.13) x10^3/uL Basophils # 0.06 (0.01-0.08) x10^3/uL Sodium 138 (135-145) mmol/L Potassium 4.3 (3.5-5.1) mmol/L Chloride 105 (98-107) mmol/L Carbon Dioxide 24 (22-30) mmol/L Anion Gap 13.0 (5-15) MEQ/L BUN 9 (7-17) mg/dL Creatinine 0.75 (0.52-1.04) mg/dL Estimated GFR 88.3 ML/MIN Glucose 101 (74-106) mg/dL Calcium 9.3 (8.4-10.2) mg/dL Total Bilirubin 0.30 (0.2-1.3) mg/dL AST 41 H (14-36) U/L ALT 22 (0-35) U/L Alkaline Phosphatase 142 H (38-126) U/L Serum Total Protein 7.1 (6.3-8.2) g/dL Albumin 4.2 (3.5-5.0) g/dL Urine Color (Yellow) Urine Appearance (Clear) Urine pH (4.6-8.0) Ur Specific [place] (1.005-1.030) Urine Protein (Negative) Urine Glucose (UA) (Negative) mg/dL Urine Ketones (Negative) Urine Blood (Negative) Urine Nitrite (Negative) Urine Bilirubin (Negative) Urine Urobilinogen (0.2) mg/dL Ur Leukocyte Esterase (Negative) U Hyaline Cast (Auto) (0-2) /LPF Urine Microscopic RBC (0-5) /HPF Urine Microscopic WBC (0-5) /HPF Ur Epithelial Cells (None Seen) /HPF Urine Bacteria (None Seen) /HPF Urine Culture Reflexed (NO) Urine Opiates Level NEGATIVE (NEGATIVE) Ur Methadone NEGATIVE (NEGATIVE) Urine Barbiturates NEGATIVE (NEGATIVE) Ur Phencyclidine (PCP) NEGATIVE (NEGATIVE) Urine Amphetamine NEGATIVE (NEGATIVE) U Benzodiazepine Level NEGATIVE (NEGATIVE) Urine Cocaine NEGATIVE (NEGATIVE) Urine Marijuana (THC) NEGATIVE (NEGATIVE) Ethyl Alcohol < 10 (0-10) mg/dL 12/09/23 Range/Units 16:58 WBC (3.98-10.04) x10^3/uL RBC (3.93-5.22) x10^6/uL Hgb (11.2-15.7) g/dL Hct (34.1-44.9) % MCV (79.4-94.8) fL MCH (25.6-32.2) pg MCHC (32.2-35.5) g/dL RDW (11.7-14.4) % Plt Count (182-369) x10^3/uL MPV (9.4-12.3) fL Gran % (34.0-71.1) % Immature Gran % (Auto) (0.001-0.429) % Nucleat RBC Rel Count (0.00-0.2) % Eos # (Auto) (0.04-0.36) x10^3/uL Immature Gran # (Auto) (0.001-0.031) x10^3u/L Absolute Lymphs (auto) (1.18-3.74) x10^3/uL Absolute Monos (auto) (0.24-0.86) x10^3/uL Absolute Nucleated RBC (0.00-0.012) x10^3u/L Lymphocytes % (19.3-51.7) % Monocytes % (4.7-12.5) % Eosinophils % (0.7-5.8) % Basophils % (0.1-1.2) % Absolute Granulocytes (1.56-6.13) x10^3/uL Basophils # (0.01-0.08) x10^3/uL Sodium (135-145) mmol/L Potassium (3.5-5.1) mmol/L Chloride (98-107) mmol/L Carbon Dioxide (22-30) mmol/L Anion Gap (5-15) MEQ/L BUN (7-17) mg/dL Creatinine (0.52-1.04) mg/dL Estimated GFR ML/MIN Glucose (74-106) mg/dL Calcium (8.4-10.2) mg/dL Total Bilirubin (0.2-1.3) mg/dL AST (14-36) U/L ALT (0-35) U/L Alkaline Phosphatase (38-126) U/L Serum Total Protein (6.3-8.2) g/dL Albumin (3.5-5.0) g/dL Urine Color Yellow (Yellow) Urine Appearance Clear (Clear) Urine pH 6.0 (4.6-8.0) Ur Specific [place] <=1.005 (1.005-1.030) Urine Protein Negative (Negative) Urine Glucose (UA) Negative (Negative) mg/dL Urine Ketones Negative (Negative) Urine Blood Negative (Negative) Urine Nitrite Negative (Negative) Urine Bilirubin Negative (Negative) Urine Urobilinogen 0.2 (0.2) mg/dL Ur Leukocyte Esterase Trace A (Negative) U Hyaline Cast (Auto) NONE SEEN (0-2) /LPF Urine Microscopic RBC 0-2 (0-5) /HPF Urine Microscopic WBC 0-2 (0-5) /HPF Ur Epithelial Cells None Seen (None Seen) /HPF Urine Bacteria None Seen (None Seen) /HPF Urine Culture Reflexed NO (NO) Urine Opiates Level (NEGATIVE) Ur Methadone (NEGATIVE) Urine Barbiturates (NEGATIVE) Ur Phencyclidine (PCP) (NEGATIVE) Urine Amphetamine (NEGATIVE) U Benzodiazepine Level (NEGATIVE) Urine Cocaine (NEGATIVE) Urine Marijuana (THC) (NEGATIVE) Ethyl Alcohol (0-10) mg/dL - Progress Progress: improved, pain not gone completely, re-examined Progress Note: 12/09/23 17:17 My medical decision making of the assignment of moderate complexity to this patient's medical issue today is based on review of the patient's past medical history, review of the patient's medication list, reviewed patient drug allergy list, history present illness and physical findings on examination. The workup in this patient includes CBC, CMP, urinalysis, urine drug screen, CT scan of the head without contrast. The differential diagnosis includes but is not limited to anxiety about health, acute on chronic renal issues, exacerbation of her fibromyalgia This patient has multiple complaints. She could not get into see her nurse practitioner today. She is wanting a CT scan of her head because she knows she has retinal hemorrhages bilaterally and she has a headache. She also has bilateral feet and ankle swelling which she did not have in the last week or 2 and she is concerned about this as well. And finally, she states that she has fibromyalgia and the pain is much worse today. Her symptoms are generalized. 12/09/23 18:26 I have interpreted the patient's laboratory data results. Based on the laboratory data results. There are no acute, emergent medical issues. CT scan of the head without contrast was interpreted by the radiologist and I reviewed the impression. The impression states no acute intracranial abnormality. Counseled pt/family regarding: lab results, diagnosis, need for follow-up, rad results Medical Desision Making - Independent Historian Additional History obtained from: Relative/friend - Diagnostic Testing Diagnostic test were ordered, analyzed, and reviewed by me: Yes Radiological Interpretation: Reviewed by me, Teleradiologist Report - Risk of complications Low Risk: Low risk of morbidity from additional dx testing or treatment - Departure Departure Disposition: Home Clinical Impression: Fibromyalgia, Swelling of both lower extremities, Headache Condition: Stable Critical Care Time: No Referrals: [facility] [Primary Care Provider] - Follow up/PCP as directed Additional Instructions: Drink plenty of fluids. Take your medication as prescribed. Call your primary care provider on 12/12/2023, to make arrangements to be seen within the next 3 to 5 days.
[2023-12-09 15:56] VITALS: PULSE 83; RESP 18; TEMP 97.4
[2023-12-09 17:04] VITALS: BP 159/129; O2SAT 94
[2023-12-09 17:22] LABS: Appearance Clear (Clear); Bacteria None Seen /HPF (None Seen); Bilirubin Negative (Negative); Blood Negative (Negative); Epithelial Cells None Seen /HPF (None Seen); Glucose, Urine Negative (Negative); Hyaline Casts NONE SEEN /LPF (0-2); Ketones Negative (Negative); Leukocyte Esterase Trace (Negative); Nitrite Negative (Negative); Protein,Urine Dip Negative (Negative); RBC 0-2 /HPF (0-5); Specific Gravity <=1.005 (1.005-1.030); Urobilinogen 0.2 mg/dL (0.2); WBC 0-2 /HPF (0-5)
[2023-12-09] MEDS ORDERED: MORPHINE SULFATE 4 MG INJ ONE (17:23)
[2023-12-09] MEDS ORDERED: ZOFRAN ODT 4 MG ONE (17:23)
[2023-12-09] MEDS: MORPHINE SULFATE 4 MG INJ IM ONE (17:26)
[2023-12-09] MEDS: ZOFRAN ODT 4 MG PO ONE (17:26)
[2023-12-09 17:36] LABS: Amphetamine,Urine NEGATIVE (NEGATIVE); Barbiturate,Urine NEGATIVE (NEGATIVE); Benzodiazepine,Urine NEGATIVE (NEGATIVE); Cocaine,Urine NEGATIVE (NEGATIVE); Methadone,Urine NEGATIVE (NEGATIVE); Opiate,Urine NEGATIVE (NEGATIVE); PCP,Urine NEGATIVE (NEGATIVE); THC,Urine NEGATIVE (NEGATIVE)
[2023-12-09 17:39] LABS: Absolute Neutrophil Ct (ANC) 4.84 x10^3/uL (1.56-6.13); BASOPHIL % 0.7 % (0.1-1.2); Basophil (Absolute #) 0.06 x10^3/uL (0.01-0.08); Eosinophil % 2.3 % (0.7-5.8); Eosinophil (Absolute #) 0.19 x10^3/uL (0.04-0.36); Hematocrit 33.8 % (34.1-44.9); Hemoglobin 10.7 g/dL (11.2-15.7); IMMATURE GRAN # 0.03 x10^3u/L (0.001-0.031); IMMATURE GRAN % 0.4 % (0.001-0.429); Lymphocyte (Absolute #) 2.41 x10^3/uL (1.18-3.74); Lymphocytes % 29.3 % (19.3-51.7); Mean Cell Volume 92.1 fL (79.4-94.8); Mean Corpuscular Hemoglobin 29.2 pg (25.6-32.2); Mean Corpuscular Hgb Concent. 31.7 g/dL (32.2-35.5); Mean Platelet Volume 9.6 fL (9.4-12.3); Monocyte (Absolute #) 0.69 x10^3/uL (0.24-0.86); Monocytes % 8.4 % (4.7-12.5); Neutrophil % 58.9 % (34.0-71.1); Platelet Count 266 x10^3/uL (182-369); Red Blood Count 3.67 x10^6/uL (3.93-5.22); Red Cell Distribution Width 13.8 % (11.7-14.4); White Blood Count 8.2 x10^3/uL (3.98-10.04)
[2023-12-09 18:05] LABS: ALBUMIN 4.2 g/dL (3.5-5.0); ALKALINE PHOSPHATASE 142 U/L (38-126); BLOOD UREA NITROGEN 9 mg/dL (7-17); CHLORIDE 105 mmol/L (98-107); Calcium 9.3 mg/dL (8.4-10.2); Carbon Dioxide 24 mmol/L (22-30); Creatinine 1 0.75 mg/dL (0.52-1.04); EST GLOMERULAR FILTRATION RATE 88.3 ML/MIN; ETHYL ALCOHOL < 10 mg/dL (0-10); Glucose 101 mg/dL (74-106); Potassium 4.3 mmol/L (3.5-5.1); SGOT/AST 41 U/L (14-36); SGPT/ALT 22 U/L (0-35); SODIUM 138 mmol/L (135-145); Total Protein 7.1 g/dL (6.3-8.2)
--- NOTE | 2023-12-09 22:11 | XRAY ---
Indication: Dizziness. Headache. Multiple contiguous axial images obtained without contrast. Comparison: None Normal appearing brain parenchyma, ventricles, and bony calvarium for patient's age. Visualized paranasal sinuses and mastoid air cells are clear. Impression: Normal CT head without contrast exam.
== END 2023-12-09 19:13 | disposition home or self-care (01) ==
LOC: ED 15:35
DX: M79.7 Fibromyalgia (principal); M79.89 Other specified soft tissue disorders; R51.9 Headache, unspecified; E78.5 Hyperlipidemia, unspecified; I10 Essential (primary) hypertension; Z79.899 Other long term (current) drug therapy; Z72.0 Tobacco use; Z59.82 Transportation insecurity
CPT/HCPCS: 36415; 70450; 80053; 80307; 81001; 82077; 85025; 93005; 96372; 99284; J2270; Q0162

== ENCOUNTER 2023-12-25 22:03 | Emergency (ER) | payer MEDICARE ==
[2023-12-25 22:27] VITALS: TEMP 97.9
--- NOTE | 2023-12-25 22:49 | ERPHSYRPT ---
- History of Present Illness Time Seen by Provider: 12/25/23 22:49 Source: patient, EMS Exam Limitations: no limitations Patient Subjective Stated Complaint: pt states she voided at 1600 today and it was all blood. states she has not been able to void since then. denies pain or pressure in the bladder area. Triage Nursing Assessment: pt alert and oriented, answers questions. pt arrive per ambulance and transfers to stretcher with minimal assist. respirations nonlabored. skin warm and dry. pt not voided since arrival to er. Physician History: 63yo f presents via EMS for hematuria. Pt reports she noticed blood in the toilet and blood on the toilet paper after she urinated around 4pm today. Pt reports she has felt generally fatigued for the past few days as well. Pt reports she was hospitalized several months ago w/ a UTI. Pt denies any fevers or chills at home, denies any cp or sob. Pt reports good oral intake. Pt denies denies any falls or LOC. Pt denies any dysuria or frequency, denies vaginal bleeding, reports significant hx of hemorrhoids, had a bleeding hemorrhoid last week. Timing/Duration: today Activites at Onset: other (urinating) Severity of Pain-Max: none Severity of Pain-Current: none Prior abdominal problems: UTI Sexual intercourse history: not active Modifying Factors: Improves With: nothing Associated Symptoms: denies symptoms Allergies/Adverse Reactions: diazepam Allergy (Severe, Verified 12/25/23 22:32) Difficulty Breathing total body hives donepezil Allergy (Unknown, Verified 12/25/23 22:32) latex Allergy (Unknown, Verified 12/25/23 22:32) Latex, Natural Rubber Allergy (Unknown, Verified 12/25/23 22:44) Difficulty Breathing total body hives Penicillins Allergy (Unknown, Verified 12/25/23 22:32) Shortness of Breath valbenazine [From Ingrezza] Allergy (Unknown, Verified 12/25/23 22:44) Difficulty Breathing total body hives Home Medications: Amlodipine Besylate 5 mg [Norvasc 5 mg] 5 mg PO DAILY 12/15/21 [History] Omeprazole 20 mg PO DAILY 12/15/21 [History] Levothyroxine Sodium 25 Mcg [Synthroid 25 Mcg] 1 tab PO DAILY 03/09/23 [History] Mirtazapine 30 mg [Remeron 30 mg] 15 mg PO HS 03/09/23 [History] OXcarbazepine [Trileptal] 1 tab PO BID 03/09/23 [History] Pravastatin Sodium 1 tab PO HS 03/09/23 [History] Vortioxetine Hydrobromide [Trintellix] 1 tab PO DAILY 03/09/23 [History] Ziprasidone 20 mg [Geodon 20 MG Capsule] 1 cap PO DAILY 03/09/23 [History] ziprasidone HCL [Ziprasidone HCl] 1 cap PO HS 03/09/23 [History] Prazosin HCl 5 mg PO HS 06/20/23 [History] Hx Tetanus, Diphtheria Vaccination/Date Given: No (unsure) Hx Influenza Vaccination/Date Given: No Hx Pneumococcal Vaccination/Date Given: Yes Travel Risk - International Travel Have you traveled outside of the country in past 3 weeks: No - Emerging Infectious Disease Are you exhibiting symptoms associated with any current EIDs: No - Review of Systems Constitutional: No Symptoms Respiratory: No Symptoms Cardiac: No Symptoms Abdominal/Gastrointestinal: No Symptoms Genitourinary Symptoms: Hematuria, No Dysuria, No Frequency, No Urgency, No Flank Pain, No Menorrhagia, No Vaginal Bleeding - Past Medical History Pertinent Past Medical History: Yes Neurological History: Dementia, Other ENT History: No Pertinent History Cardiac History: Angina, High Cholesterol, Hypertension, Other Respiratory History: Asthma, COPD Endocrine Medical History: Hypothyroidism Musculoskeletal History: Osteoarthritis GI Medical History: GERD History: No Pertinent History Psycho-Social History: Bipolar, Anxiety Female Reproductive Disorders: No Pertinent History Other Medical History: [facility] HAS SLIGHT CASE OF COGNITIVE IMPAIRMENT BY DR AUSTIN. [facility] PCP TOLD HER SHE HAD EARLY DEMENTIA. [facility] HAS HEART [facility]URMUR AND SEES DR. MARIE. PATIENT REPORTS HX OF ANGINA AND HAS NITROGLYCERIN BUT HASN'T HAD TO TAKE IT. HAS OA NECK, SHOULDERS AND BOTH KNEES. ALSO ANXIETY AND DEPRESSION - Past Surgical History Past Surgical History: Yes Neuro Surgical History: No Pertinent History Cardiac: No Pertinent History Respiratory: No Pertinent History Gastrointestinal: Appendectomy, Cholecystectomy Genitourinary: No Pertinent History Musculoskeletal: Other Female Surgical History: Hysterectomy, Tubal Ligation Other Surgical History: right shoulder reconstruction times 3 - Social History Smoking Status: Current every day smoker How long have you smoked: age 14 Exposure to second hand smoke: Yes Drug Use: marijuana Patient Lives Alone: No - Social Determinants of Health Will the patient participate in the screening: Yes Do you worry about a steady place to live?: Yes Do you have any problems with any of the following?: No known problems, Other In the past 12 months,have you had to go without utilities?: No Transportation Issues: Yes Has anyone in your support network made you feel unsafe?: No Have you or anyone in your house had to go without enough: No Comment: gets assistance at food pantry - Nursing Vital Signs Nursing Vital Signs: Initial Vital Signs Temperature 97.9 F 12/25/23 22:06 Pulse Rate 72 12/25/23 22:06 Respiratory Rate 18 12/25/23 22:06 Blood Pressure 181/77 12/25/23 22:06 O2 Sat by Pulse Oximetry 98 12/25/23 22:06 Pain Scale Pain Intensity 7 - Physical Exam General Appearance: no apparent distress, alert Respiratory Exam: normal breath sounds, airway intact, No chest tenderness, No respiratory distress Cardiovascular Exam: regular rate/rhythm, normal heart sounds, normal peripheral pulses Gastrointestinal/Abdomen Exam: soft, normal bowel sounds, No tenderness, No distention Rectal Exam: deferred (pt refused) Back Exam: normal inspection, No CVA tenderness Neurologic Exam: alert, oriented x 3, cooperative, normal mood/affect, sensation nml, No motor deficits Skin Exam: normal color, warm, dry SpO2 Interpretation: normal SpO2: 98 O2 Delivery: Room Air Ordered Tests: Active Orders 24 hr Category Date Time Status [facility] Cath [Cath for Specimen-Straight] STAT Care 12/25/23 23:14 Active ACO SDOH Referral ONCE Cons 12/25/23 22:27 Active CBC W DIFF Stat Lab 12/25/23 22:53 Completed CMP Stat Lab 12/25/23 22:53 Completed Lactic Acid Stat Lab 12/25/23 22:50 Completed TROPONIN Q4H Lab 12/25/23 22:53 Completed TROPONIN Q4H Lab 12/26/23 03:00 Ordered TROPONIN Q4H Lab 12/26/23 07:00 Ordered UA W/RFX UR CULTURE Stat Lab 12/25/23 23:10 Completed Lab/Rad Data: Laboratory Result Diagrams 12/25/23 22:53 12/25/23 22:53 Laboratory Results 12/25/23 12/25/23 12/25/23 Range/Units 23:10 22:53 22:53 WBC (3.98-10.04) x10^3/uL RBC (3.93-5.22) x10^6/uL Hgb (11.2-15.7) g/dL Hct (34.1-44.9) % MCV (79.4-94.8) fL MCH (25.6-32.2) pg MCHC (32.2-35.5) g/dL RDW (11.7-14.4) % Plt Count (182-369) x10^3/uL MPV (9.4-12.3) fL Gran % (34.0-71.1) % Immature Gran % (Auto) (0.001-0.429) % Nucleat RBC Rel Count (0.00-0.2) % Eos # (Auto) (0.04-0.36) x10^3/uL Immature Gran # (Auto) (0.001-0.031) x10^3u/L Absolute Lymphs (auto) (1.18-3.74) x10^3/uL Absolute Monos (auto) (0.24-0.86) x10^3/uL Absolute Nucleated RBC (0.00-0.012) x10^3u/L Lymphocytes % (19.3-51.7) % Monocytes % (4.7-12.5) % Eosinophils % (0.7-5.8) % Basophils % (0.1-1.2) % Absolute Granulocytes (1.56-6.13) x10^3/uL Basophils # (0.01-0.08) x10^3/uL Sodium 136 (135-145) mmol/L Potassium 3.9 (3.5-5.1) mmol/L Chloride 103 (98-107) mmol/L Carbon Dioxide 23 (22-30) mmol/L Anion Gap 13.9 (5-15) MEQ/L BUN 9 (7-17) mg/dL Creatinine 0.72 (0.52-1.04) mg/dL Estimated GFR 92.7 ML/MIN Glucose 100 (74-106) mg/dL Lactic Acid (0.4-2.0) Calcium 9.2 (8.4-10.2) mg/dL Total Bilirubin 0.40 (0.2-1.3) mg/dL AST 49 H (14-36) U/L ALT 26 (0-35) U/L Alkaline Phosphatase 146 H (38-126) U/L Troponin I < 0.012 (0.000-0.033) ng/mL Serum Total Protein 7.0 (6.3-8.2) g/dL Albumin 4.0 (3.5-5.0) g/dL Urine Color Yellow (Yellow) Urine Appearance Clear (Clear) Urine pH 7.0 (4.6-8.0) Ur Specific [place] 1.010 (1.005-1.030) Urine Protein Negative (Negative) Urine Glucose (UA) Negative (Negative) mg/dL Urine Ketones Negative (Negative) Urine Blood Negative (Negative) Urine Nitrite Negative (Negative) Urine Bilirubin Negative (Negative) Urine Urobilinogen 0.2 (0.2) mg/dL Ur Leukocyte Esterase Negative (Negative) U Hyaline Cast (Auto) NONE SEEN (0-2) /LPF Urine Microscopic RBC 0-2 (0-5) /HPF Urine Microscopic WBC 0-2 (0-5) /HPF Ur Epithelial Cells None Seen (None Seen) /HPF Urine Bacteria None Seen (None Seen) /HPF Urine Culture Reflexed NO (NO) 12/25/23 12/25/23 Range/Units 22:53 22:50 WBC 8.0 (3.98-10.04) x10^3/uL RBC 3.67 L (3.93-5.22) x10^6/uL Hgb 10.9 L (11.2-15.7) g/dL Hct 33.5 L (34.1-44.9) % MCV 91.3 (79.4-94.8) fL MCH 29.7 (25.6-32.2) pg MCHC 32.5 (32.2-35.5) g/dL RDW 13.2 (11.7-14.4) % Plt Count 308 (182-369) x10^3/uL MPV 10.5 (9.4-12.3) fL Gran % 61.4 (34.0-71.1) % Immature Gran % (Auto) 0.2 (0.001-0.429) % Nucleat RBC Rel Count 0.0 (0.00-0.2) % Eos # (Auto) 0.23 (0.04-0.36) x10^3/uL Immature Gran # (Auto) 0.02 (0.001-0.031) x10^3u/L Absolute Lymphs (auto) 2.12 (1.18-3.74) x10^3/uL Absolute Monos (auto) 0.67 (0.24-0.86) x10^3/uL Absolute Nucleated RBC 0.00 (0.00-0.012) x10^3u/L Lymphocytes % 26.4 (19.3-51.7) % Monocytes % 8.4 (4.7-12.5) % Eosinophils % 2.9 (0.7-5.8) % Basophils % 0.7 (0.1-1.2) % Absolute Granulocytes 4.92 (1.56-6.13) x10^3/uL Basophils # 0.06 (0.01-0.08) x10^3/uL Sodium (135-145) mmol/L Potassium (3.5-5.1) mmol/L Chloride (98-107) mmol/L Carbon Dioxide (22-30) mmol/L Anion Gap (5-15) MEQ/L BUN (7-17) mg/dL Creatinine (0.52-1.04) mg/dL Estimated GFR ML/MIN Glucose (74-106) mg/dL Lactic Acid 1.0 (0.4-2.0) Calcium (8.4-10.2) mg/dL Total Bilirubin (0.2-1.3) mg/dL AST (14-36) U/L ALT (0-35) U/L Alkaline Phosphatase (38-126) U/L Troponin I (0.000-0.033) ng/mL Serum Total Protein (6.3-8.2) g/dL Albumin (3.5-5.0) g/dL Urine Color (Yellow) Urine Appearance (Clear) Urine pH (4.6-8.0) Ur Specific [place] (1.005-1.030) Urine Protein (Negative) Urine Glucose (UA) (Negative) mg/dL Urine Ketones (Negative) Urine Blood (Negative) Urine Nitrite (Negative) Urine Bilirubin (Negative) Urine Urobilinogen (0.2) mg/dL Ur Leukocyte Esterase (Negative) U Hyaline Cast (Auto) (0-2) /LPF Urine Microscopic RBC (0-5) /HPF Urine Microscopic WBC (0-5) /HPF Ur Epithelial Cells (None Seen) /HPF Urine Bacteria (None Seen) /HPF Urine Culture Reflexed (NO) - Progress Progress: improved Air Movement: fair Progress Note: 12/26/23 00:27 lab workup unremarkable - hgb stable at 10.9, increased from 10.6 at visit last month UA negative for hematuria or UTI pt refused rectal exam in ED, does endorse recent issues w/ hemorroids, denies any vaginal bleeding for > 10 yrs 12/26/23 00:44 plan for dc home w/ PCP f/u this week ([facility]) recommend hydrating well at home, stool softeners as needed to limit hard stools and straining return to ED if: develop significant bleeding w/ stooling or urinating, develop weakness or confusion, develop abdominal pain, develop fevers Blood Culture(s) Obtained: No Antibiotics given: No Counseled pt/family regarding: lab results, diagnosis, need for follow-up Medical Desision Making - Diagnostic Testing Diagnostic test were ordered, analyzed, and reviewed by me: Yes - Risk of complications Minimal Risk: Minimal risk of morbidity - Departure Departure Disposition: Home Clinical Impression: Blood on toilet paper Condition: Stable Critical Care Time: No Referrals: [facility] [Primary Care Provider] - Follow up/PCP as directed Additional Instructions: plan for dc home w/ PCP f/u this week ([facility]on) recommend hydrating well at home, stool softeners as needed to limit hard stools and straining return to ED if: develop significant bleeding w/ stooling or urinating, develop weakness or confusion, develop abdominal pain, develop fevers
[2023-12-25 22:55] LABS: Absolute Neutrophil Ct (ANC) 4.92 x10^3/uL (1.56-6.13); BASOPHIL % 0.7 % (0.1-1.2); Basophil (Absolute #) 0.06 x10^3/uL (0.01-0.08); Eosinophil % 2.9 % (0.7-5.8); Eosinophil (Absolute #) 0.23 x10^3/uL (0.04-0.36); Hematocrit 33.5 % (34.1-44.9); Hemoglobin 10.9 g/dL (11.2-15.7); IMMATURE GRAN # 0.02 x10^3u/L (0.001-0.031); IMMATURE GRAN % 0.2 % (0.001-0.429); Lymphocyte (Absolute #) 2.12 x10^3/uL (1.18-3.74); Lymphocytes % 26.4 % (19.3-51.7); Mean Cell Volume 91.3 fL (79.4-94.8); Mean Corpuscular Hemoglobin 29.7 pg (25.6-32.2); Mean Corpuscular Hgb Concent. 32.5 g/dL (32.2-35.5); Mean Platelet Volume 10.5 fL (9.4-12.3); Monocyte (Absolute #) 0.67 x10^3/uL (0.24-0.86); Monocytes % 8.4 % (4.7-12.5); Neutrophil % 61.4 % (34.0-71.1); Platelet Count 308 x10^3/uL (182-369); Red Blood Count 3.67 x10^6/uL (3.93-5.22); Red Cell Distribution Width 13.2 % (11.7-14.4)
[2023-12-25 23:02] LABS: ANION GAP 13.9 MEQ/L (5-15); BILIRUBIN,TOTAL 0.4 mg/dL (0.2-1.3); Calcium 9.2 mg/dL (8.4-10.2); Creatinine 1 0.72 mg/dL (0.52-1.04); EST GLOMERULAR FILTRATION RATE 92.7 ML/MIN; Potassium 3.9 mmol/L (3.5-5.1)
[2023-12-25 23:13] VITALS: RESP 16
[2023-12-25 23:48] LABS: Appearance Clear (Clear); Bacteria None Seen /HPF (None Seen); Bilirubin Negative (Negative); Blood Negative (Negative); Epithelial Cells None Seen /HPF (None Seen); Glucose, Urine Negative (Negative); Hyaline Casts NONE SEEN /LPF (0-2); Ketones Negative (Negative); Leukocyte Esterase Negative (Negative); Nitrite Negative (Negative); Protein,Urine Dip Negative (Negative); RBC 0-2 /HPF (0-5); Urobilinogen 0.2 mg/dL (0.2); WBC 0-2 /HPF (0-5)
[2023-12-26 00:29] VITALS: O2SAT 98
[2023-12-26 01:09] VITALS: BP 102/68; PULSE 79
== END 2023-12-26 01:40 | disposition home or self-care (01) ==
LOC: ED 22:03
DX: R31.0 Gross hematuria (principal); R53.83 Other fatigue; E78.5 Hyperlipidemia, unspecified; I10 Essential (primary) hypertension; Z79.899 Other long term (current) drug therapy; Z72.0 Tobacco use; Z59.819 Housing instability, housed unspecified; Z59.82 Transportation insecurity
CPT/HCPCS: 36415; 80053; 81001; 83605; 84484; 85025; 99283; P9612

== ENCOUNTER 2024-12-27 05:41 | Emergency (ER) | payer MEDICARE, OTHER ==
[2024-12-27 05:54] VITALS: RESP 20; TEMP 97.3; O2SAT 98
--- NOTE | 2024-12-27 06:16 | ERPHSYRPT ---
- History of Present Illness Time Seen by Provider: 12/27/24 05:59 Source: patient Exam Limitations: no limitations Patient Subjective Stated Complaint: pt states that she was around someone with trench mouth. pt states that she was antibiotics for bronchitis and is still on prednisone Triage Nursing Assessment: pt ambulated into the er; pt is axo x4; c/o mouth pain; pt states 8/10 pain to left upper lip; skin PDW; no respiratory distress present, pt states SOB; hypertensive; blister present to left upper lip Physician History: Patient is a 64-year-old female of hypertension hyperlipidemia COPD, hypothyroidism current smoker presents to our ED for evaluation of lesions on her upper lip and in her right nostril. Patient just completed a course of antibiotics for treatment of a cough. Patient is still taking prednisone. Patient is concerned as she was exposed to someone with "trench mouth". However patient has no intraoral lesions. Patient rates her pain 8 out of 10. However she is resting comfortably. No trauma no fever no nausea no vomiting no diarrhea no rash. Patient hesitant to take pain medication as she is driving. However she is agreeable to Tylenol. Patient states she otherwise feels well. She voices no other complaints or concerns at this time. Portions of this note were created with voice recognition technology. There may be grammatical, spelling, punctuation or sound alike errors Timing/Duration: today Severity: moderate Modifying Factors: Improves With: nothing Associated Symptoms: denies symptoms Allergies/Adverse Reactions: diazepam Allergy (Severe, Verified 12/27/24 05:45) Difficulty Breathing total body hives donepezil Allergy (Unknown, Verified 12/27/24 05:45) latex Allergy (Unknown, Verified 12/27/24 05:45) Latex, Natural Rubber Allergy (Unknown, Verified 12/27/24 05:45) Difficulty Breathing total body hives Penicillins Allergy (Unknown, Verified 12/27/24 05:45) Shortness of Breath valbenazine [From Ingrezza] Allergy (Unknown, Verified 12/27/24 05:45) Difficulty Breathing total body hives Home Medications: Amlodipine Besylate 5 mg [Norvasc 5 mg] 5 mg PO DAILY 12/15/21 [History] Omeprazole 20 mg PO DAILY 12/15/21 [History] Levothyroxine Sodium 25 Mcg [Synthroid 25 Mcg] 1 tab PO DAILY 03/09/23 [History] Mirtazapine 30 mg [Remeron 30 mg] 15 mg PO HS 03/09/23 [History] OXcarbazepine [Trileptal] 1 tab PO BID 03/09/23 [History] Pravastatin Sodium 1 tab PO HS 03/09/23 [History] Vortioxetine Hydrobromide [Trintellix] 1 tab PO DAILY 03/09/23 [History] Ziprasidone 20 mg [Geodon 20 MG Capsule] 1 cap PO DAILY 03/09/23 [History] ziprasidone HCL [Ziprasidone HCl] 1 cap PO HS 03/09/23 [History] Prazosin HCl 5 mg PO HS 06/20/23 [History] Hx Tetanus, Diphtheria Vaccination/Date Given: Yes Hx Influenza Vaccination/Date Given: Yes Hx Pneumococcal Vaccination/Date Given: Yes Travel Risk - International Travel Have you traveled outside of the country in past 3 weeks: No - Emerging Infectious Disease Are you exhibiting symptoms associated with any current EIDs: No - Review of Systems All Other Systems: Reviewed and Negative - Past Medical History Pertinent Past Medical History: Yes Neurological History: Other, Dementia ENT History: No Pertinent History Cardiac History: Angina, High Cholesterol, Hypertension, Other Respiratory History: COPD, Asthma Endocrine Medical History: Hypothyroidism Musculoskeletal History: Osteoarthritis GI Medical History: GERD History: No Pertinent History Psycho-Social History: Bipolar, Anxiety Female Reproductive Disorders: No Pertinent History Other Medical History: [facility] HAS SLIGHT CASE OF COGNITIVE IMPAIRMENT BY DR AUSTIN. [facility] PCP TOLD HER SHE HAD EARLY DEMENTIA. [facility] HAS HEART [facility]URMUR AND SEES DR. MARIE. PATIENT REPORTS HX OF ANGINA AND HAS NITROGLYCERIN BUT HASN'T HAD TO TAKE IT. HAS OA NECK, SHOULDERS AND BOTH KNEES. ALSO ANXIETY AND DEPRESSION - Past Surgical History Past Surgical History: Yes Neuro Surgical History: No Pertinent History Cardiac: No Pertinent History Respiratory: No Pertinent History Gastrointestinal: Appendectomy, Cholecystectomy Genitourinary: No Pertinent History Musculoskeletal: Other Female Surgical History: Hysterectomy, Tubal Ligation Other Surgical History: right shoulder reconstruction times 3 - Social History Smoking Status: Current every day smoker How long have you smoked: age 14 Exposure to second hand smoke: Yes Drug Use: marijuana - Social Determinants of Health Will the patient participate in the screening: Yes Do you worry about a steady place to live?: No Do you have any problems with any of the following?: No known problems In the past 12 months,have you had to go without utilities?: No Transportation Issues: No Has anyone in your support network made you feel unsafe?: No Have you or anyone in your house had to go w/o enough food: No - Nursing Vital Signs Nursing Vital Signs: Initial Vital Signs Temperature 97.3 F 12/27/24 05:45 Pulse Rate 79 12/27/24 05:45 Respiratory Rate 20 12/27/24 05:45 Blood Pressure 174/82 12/27/24 05:45 O2 Sat by Pulse Oximetry 98 12/27/24 05:45 Pain Scale Pain Intensity 8 - Physical Exam General Appearance: no apparent distress, alert Eye Exam: PERRL/EOMI, eyes nml inspection Ears, Nose, Throat Exam: normal ENT inspection, pharynx normal, moist mucous membranes, other (Patient has a cold sore lesion on her upper lip and also in her right nostril. No superimposed cellulitis no active drainage) Neck Exam: normal inspection, full range of motion Respiratory Exam: normal breath sounds, airway intact, No respiratory distress Cardiovascular Exam: regular rate/rhythm, normal heart sounds Gastrointestinal/Abdomen Exam: soft, No tenderness, No mass Back Exam: normal inspection, normal range of motion, No CVA tenderness, No vertebral tenderness Extremity Exam: normal inspection, normal range of motion, pelvis stable Neurologic Exam: alert, oriented x 3, cooperative, normal mood/affect, sensation nml, No motor deficits Skin Exam: normal color, warm, dry, No rash Lymphatic Exam: No adenopathy SpO2 Interpretation: normal SpO2: 98 O2 Delivery: Room Air - Course Nursing assessment & vital signs reviewed: Yes Ordered Tests: Medication Summary Discontinued Medications Generic Name Dose Route Start Last Admin Trade Name Freq PRN Reason Stop Dose Admin Acetaminophen 975 mg 12/27/24 06:23 12/27/24 06:25 Acetaminophen 325 Mg Tablet PO 12/27/24 06:24 975 mg STAT ONE Administration Acetaminophen Confirm 12/27/24 06:25 Acetaminophen 325 Mg Tablet Administered 12/27/24 06:26 Dose 975 mg .ROUTE .[facility] - Progress Progress: improved Progress Note: Patient is a 64-year-old female of hypertension hyperlipidemia COPD, hypothyroidism current smoker presents to our ED for evaluation of lesions on her upper lip and in her right nostril. Physical exam reveals herpetic appearing lesions to the upper lip and inside of the right nostril. Patient states she has a history of "cold sores". Physical exam otherwise nonremarkable. We intended to administer a dose of antiviral cream in our ED however we do not have the antiviral cream in our Pyxis. A prescription for Zovirax topical cream was forwarded to patient's pharmacy. Patient received an oral dose of Tylenol for pain control. Patient otherwise feels well. She states he is ready for discharge. She voices no other complaints or concerns at this time. Portions of this note were created with voice recognition technology. There may be grammatical, spelling, punctuation or sound alike errors History obtained from patient Differential diagnosis includes a canker sore, impetigo, herpes labialis, dermatitis Complexity of problems addressed is moderate acute complicated. No critical care time. Complexity of data reviewed and analyzed is none. No specialized testing ordered. Risk of complication at risk of morbidity/mortality of patient management is moderate. A prescription for Zovirax forwarded to patient's pharmacy. Vital stable. Time spent to discharge patient is approximately 15 minutes. Plan of care established for shared decision making. No social determinants of health present to impede follow-up. Portions of this note were created with voice recognition technology. There may be grammatical, spelling, punctuation or sound alike errors 12/27/24 06:28 Counseled pt/family regarding: diagnosis, need for follow-up - Departure Departure Disposition: Home Clinical Impression: Cold sore Condition: Stable Critical Care Time: No Referrals: RENALDO LAY [Primary Care Provider, [facility]] - Follow up/PCP as directed Instructions: Cold sores - ED discharge instructions Additional Instructions: Discharge/Care Plan CHE ORTIZ was seen on 12/27/24 in the Emergency Room. The patient was counseled regarding Diagnosis,Lab results, Imaging studies, need for follow up and when to return to the Emergency Room. Prescriptions given: Discharge Note I have spoken with the patient and/or caregivers. I have explained the patient's condition, diagnosis and treatment plan based on the information available to me at this time. I have answered the patient's and/or caregiver's questions and addressed any concerns. The patient and/or caregivers have as good understanding of the patient's diagnosis, condition and treatment plan as can be expected at this point. The vital signs have been stable. The patient's condition is stable and appropriate for discharge from the emergency department. The patient will pursue further outpatient evaluation with the primary care physician or other designated or consulting physician as outlined in the discharge instructions. The patient and/or caregivers are agreeable to this plan of care and follow-up instructions have been explained in detail. The patient and/or caregivers have received these instruction. The patient/and or caregivers are aware that any significant change in condition or worsening of symptoms should prompt an immediate return to this or the closest emergency department or call 911. Prescriptions: Acyclovir Cream 5 gm [Zovirax CREAM 5 GM] 5 gm TP 5XD 4 Days #1 unit
[2024-12-27 06:23] VITALS: PULSE 71
[2024-12-27] MEDS: TYLENOL 325 MG PO ONE (06:25)
[2024-12-27] MEDS ORDERED: TYLENOL 325 MG ONE (06:25)
[2024-12-27 06:30] VITALS: BP 142/74
== END 2024-12-27 06:29 | disposition home or self-care (01) ==
LOC: ED 05:41
DX: B00.1 Herpesviral vesicular dermatitis (principal); I10 Essential (primary) hypertension; Z79.899 Other long term (current) drug therapy; Z72.0 Tobacco use